=== PATIENT | female | born 1960 | race Caucasian/White ===

== ENCOUNTER → 2017-09-22 14:59 | Outpatient (CLI) | payer OTHER, BC, SELFPAY ==
--- NOTE | 2017-09-22 15:02 | NVE_ITS ---
Venous Exam Indications: 729.5 Pain in limb. 729.81 Swelling of limb. IMPRESSIONS 1. There is no evidence of significant Reflux. 2. No evidence of deep or superficial vein thrombosis involving the right lower extremity History: The patient chemotherapy. Risk factors: Malignancy: LUNG CA. Right lower extremity venous duplex evaluation. Doppler flow study including spectral analysis, color and sifuentes scale imaging. Location: Vascular laboratory. Patient status: Outpatient. CRITICAL FINDINGS - Reported to: [facility] - Read back and verified. - 09/22/17 - 1520 - NONE Tables: Venous flow and imaging: + +-------+ + Location Overall Flow properties + +-------+ + Right common femoral Patent Normal phasicity; spontaneous; normal augmentation; compressible + +-------+ + Right saphenofemoral junction Patent Compressible + +-------+ + Right profunda femoral Patent Compressible + +-------+ + Right femoral Patent Normal phasicity; spontaneous; normal augmentation; compressible + +-------+ + Right greater saphenous Patent Normal phasicity; spontaneous; normal augmentation; compressible + +-------+ + Right popliteal Patent Normal phasicity; spontaneous; normal augmentation; compressible + +-------+ + Right posterior tibial Patent Compressible + +-------+ + Right peroneal Patent Compressible + +-------+ + Right gastrocnemius Patent Compressible + +-------+ + Right soleal Patent Compressible + +-------+ + (Report amended ) Electronically signed by: Raul Richey [id number]
== END ==
PROVIDERS: PCP Family Medicine; Visit Provider Family Medicine
DX: M79.89 Other specified soft tissue disorders (principal)
CPT/HCPCS: 93971

== ENCOUNTER → 2017-10-20 08:43 | Outpatient (CLI) | payer OTHER, BC, SELFPAY ==
--- NOTE | 2017-10-20 08:56 | NM_ITS ---
NM bone scan whole body CLINICAL INDICATION: Remote injury with persistent pain and swelling ITS.REASON: RT FOOT SWELLING ORDERING PHYSICIAN: Marlon Le MD PATIENT AGE: 57 years DOSE: 24.5 mCi technetium MDP COMPARISON made to prior radiograph of same day of the right foot FINDINGS: There is increased blood flow to the right foot and ankle. Blood flow images show increased activity in the midfoot laterally in the region of the cuboid. Delayed images also show increased activity at this region in the mid foot laterally at the area of the cuboid. Repeat right foot x-rays performed on the same day showing some sclerosis involving the distal aspect of the cuboid which could be related to a healing fracture. This was not present on the radiograph of 08/08/2017. Would consider a CT scan of the right foot confirm this finding. IMPRESSION: Abnormal 3 phase bone scan with increased activity in the region of the cuboid on all 3 sequences. The differential diagnosis would include infection such as osteomyelitis or acute fracture. Reflex sympathetic dystrophy/complex regional pain syndrome is also included in the differential diagnosis. Radiograph however suggest that this area of new sclerosis in the distal aspect of the cuboid which could represent a healing fracture. Consider CT for confirmation.
--- NOTE | 2017-10-20 09:49 | HMH.ITSHM ---
VALSARTAN ADAVAN VITAMINS LEVOTHYROXINE BURPROPION AMLODIPINE
--- NOTE | 2017-10-20 13:19 | XR_ITS ---
XR foot RT min 3V HISTORY: Pain and swelling, abnormal bone scan ITS.REASON: INJURY TO TOP OF RT FOOT IN JULY, C/O SWELLING ORDERING PHYSICIAN: Marlon Le MD PATIENT AGE: 57 years COMPARISON: None FINDINGS: There is a new area of sclerosis involving the distal aspect of the cuboid possibly related to a healing fracture. Increased activity is present in this region on the bone scan. Consider CT for confirmation. No other significant anomalies are evident. IMPRESSION: Possible healing fracture distal cuboid. Consider CT for confirmation
== END ==
PROVIDERS: Family Provider Family Medicine; PCP Family Medicine; Visit Provider Family Medicine
DX: M79.89 Other specified soft tissue disorders (principal); M79.672 Pain in left foot
CPT/HCPCS: 73630; 78306; 78315; A9503

== ENCOUNTER 2017-10-30 17:00 | Outpatient (RCR) | payer OTHER, BC, SELFPAY | END 2017-11-03 10:21 | disposition home or self-care (01) | LOC: PT 17:00 | PROVIDERS: Family Provider Family Medicine; PCP Family Medicine; Visit Provider Family Medicine | DX: S92.211D Displaced fracture of cuboid bone of right foot, subsequent encounter for fracture with routine healing (principal) | CPT/HCPCS: 97760 ==

== ENCOUNTER → 2018-01-14 16:30 | Outpatient (CLI) | payer BC, SELFPAY ==
--- NOTE | 2018-01-14 16:38 | XR_ITS ---
XR ribs LT min 3V w CXR1V HISTORY: Left-sided rib pain, left upper quadrant pain ITS.REASON: LEFT UPPER QUADRANT PAIN ORDERING PHYSICIAN: Gretchen Haines PATIENT AGE: 57 years Comparison: None FINDINGS: No displaced rib fractures are evident. No lytic or blastic change. Frontal view of the chest shows postsurgical change in the right hilum. There is some increased density in the right lung base is nonspecific IMPRESSION: Negative left ribs. Postsurgical changes on the right with nonspecific increased density in the right lung base
== END ==
PROVIDERS: PCP Family Medicine; Visit Provider Nurse Practitioner Family
DX: R10.12 Left upper quadrant pain (principal)
CPT/HCPCS: 71101

== ENCOUNTER → 2018-01-19 08:08 | Outpatient (CLI) | payer BC, SELFPAY ==
--- NOTE | 2018-01-19 08:30 | US_ITS ---
US abdomen limited History:Left upper quadrant pain following squeezing injury Ordering Physician:Gretchen Haines Patient Age: 57 years Comparison:None Findings: The spleen contains some calcifications but is otherwise homogeneous echogenicity. No splenomegaly. No abnormal perisplenic fluid collections. The left kidney measures 9 x 4 x 6 cm. There is cortical thinning. No hydronephrosis. IMPRESSION: 1. No acute finding in the left upper quadrant apparent. Consider CT with contrast for more thorough evaluation if symptoms persist 2. Left renal cortical thinning
== END ==
PROVIDERS: PCP Family Medicine; Visit Provider Nurse Practitioner Family
DX: R10.12 Left upper quadrant pain (principal)
CPT/HCPCS: 76705

== ENCOUNTER → 2018-07-17 14:03 | Outpatient (CLI) | payer BC, SELFPAY ==
[2018-07-17 15:53] LABS: Alanine Aminotransferase 19 U/L (12-78); Albumin Level 3.9 gm/dL (3.4-5.0); Albumin/Globulin Ratio 1.3 (1.1-1.8); Alkaline Phosphatase 165 U/L (46-116); Anion Gap 11.6 mEq/L (5-15); Aspartate Amino Transferase 11 U/L (15-37); Bilirubin,Total 0.5 mg/dL (0.2-1.0); Blood Urea Nitrogen 19 mg/dL (7-18); Calcium 9.4 mg/dL (8.5-10.1); Carbon Dioxide 30 mmol/L (21.0-32.0); Chloride 107 mmol/L (98-107); Cholesterol 209 mg/dL (140-200); Creatinine,Serum 1.17 mg/dL (0.55-1.02); Estimated Glomerular Filt Rate 48 ml/min (>60); Free T4 (Free Thyroxine) 0.89 ng/dl (0.76-1.46); GFR (African American) 58 ML/MIN (>60); Globulin 2.9 gm/dl (1.3-3.2); Glucose 82 mg/dL (74-106); HDL Cholesterol 52 mg/dL (29-89); LDL Cholesterol 142 mg/dL (0-130); Potassium 4.6 mmoL/L (3.5-5.1); Sodium 144 mmol/L (136-145); Thyroid Stimulating Hormone 2.49 uIU/ml (0.358-3.740); Total Protein,Serum 6.8 gm/dL (6.4-8.2); Triglycerides 76 mg/dL (30-200); VLDL Cholesterol 15 mg/dL (0-40)
== END ==
PROVIDERS: Visit Provider Physician Assistant
DX: E03.9 Hypothyroidism, unspecified (principal); I10 Essential (primary) hypertension; Z13.220 Encounter for screening for lipoid disorders
CPT/HCPCS: 36415; 80053; 80061; 84439; 84443

== ENCOUNTER → 2018-07-24 16:08 | Outpatient (CLI) | payer BC, SELFPAY ==
[2018-07-24 16:48] LABS: Basophils % 0.6 % (0.1-2.0); Eosinophils # 0.1 K/mm3 (0.0-0.4); Eosinophils % 1.9 % (0.1-12.0); Hematocrit 35.2 % (37.0-47.0); Hemoglobin 11.5 g/dL (12.2-16.2); Lymphocytes # 1.3 K/mm3 (0.7-4.5); Mean Corpuscular HGB Conc 32.7 g/dL (31.8-35.4); Mean Corpuscular Volume 88.7 fl (81-99); Mean Platelet Volume 6.8 fl (7.4-10.4); Monocytes # 0.2 K/mm3 (0.1-1.0); Monocytes % 3.6 % (1.7-9.3); Neutrophils # 4.7 K/mm3 (1.8-7.8); Neutrophils % 73.9 % (37.0-80.0); Platelet Count 316 K/mm3 (142-424); Red Blood Count 3.96 M/mm3 (4.20-5.40); Red Cell Distribution Width 13.1 % (11.5-17.5); White Blood Count 6.4 K/mm3 (4.8-10.8)
[2018-07-24 17:31] LABS: Blood Urea Nitrogen 20 mg/dL (7-18); Calcium 9.1 mg/dL (8.5-10.1); Carbon Dioxide 30 mmol/L (21.0-32.0); Chloride 104 mmol/L (98-107); Creatinine,Serum 0.93 mg/dL (0.55-1.02); Estimated Glomerular Filt Rate 62 ml/min (>60); GFR (African American) 75 ML/MIN (>60); Glucose 92 mg/dL (74-106); Sodium 142 mmol/L (136-145)
[2018-07-26 17:30] LABS: Vitamin B12 641 pg/mL (232-1245)
[2018-07-27 13:28] LABS: Vitamin D 25 Hydroxy 24.2 ng/mL (30.0-100.0)
[2018-07-29 14:32] LABS: Ferritin 22 ng/mL (8-388)
[2018-07-30 06:16] LABS: Iron 43 ug/dL (27-159); UIBC 351 ug/dL (131-425)
[2018-07-30 08:17] LABS: Iron Saturation 11 % (15-55)
== END ==
PROVIDERS: Visit Provider Physician Assistant
DX: R53.83 Other fatigue (principal); N28.9 Disorder of kidney and ureter, unspecified
CPT/HCPCS: 36415; 80048; 82607; 82652; 82728; 83540; 83550; 85025

== ENCOUNTER → 2018-07-30 15:29 | Outpatient (CLI) | payer BC, SELFPAY ==
--- NOTE | 2018-07-30 15:35 | XR_ITS ---
XR DEXA axial skeleton HISTORY: ITS.REASON: POST MENOPAUSAL ORDERING PHYSICIAN: DUDLEY Lopez PATIENT AGE: 58 years COMPARISON: None FINDINGS: The BMD measured at the right femoral neck is 0.728 g/cm squared with a T score of -2.2. This is considered Osteopenic according to the World Health Organization criteria. Fracture risk is Moderate. Treatment is advised. IMPRESSION: Osteopenia with moderate fracture risk. Treatment suggested. Recommend follow-up exam July 2020
--- NOTE | 2018-07-30 15:35 | MM_ITS ---
MM Dig screening mamm BI w/CAD ORDERING PHYSICIAN : DUDLEY Lopez PATIENT AGE: 58 years GENDER: Female COMPARISON: Bilateral mammogram October 2014 & September 2013 Bilateral breast ultrasound November 2014 INDICATION: ITS screening mammogram. No no hormones. No new complaints. Nasopharyngeal cancer 2012. Lung cancer right chest with last chemotherapy treatment September 2017. Also note Postsurgical changes right sarah on prior 2014 CXR.Has had chemotherapy and radiation TECHNIQUE: Standard CC and MLO images were obtained. R2 CAD reviewed. FINDINGS: Very heterogeneous breast pattern is again noted . . Difficult to evaluate mammogram due to this pattern, Decreases sensitivity of mammography RIGHT BREAST: Again note the Very heterogeneous patchy fibroglandular pattern on the right, but there has been slight regression of the overall breast density and glandular elements bilaterally since prior studies 2014, 2012 reflecting maturing character of the breast . Considering this I see no focal new area of significant concern. & These appear to merely be areas of dense fibrocystic tissue on previous 2014 ultrasound without dominant cyst at that time. LEFT BREAST: [We again see the ovoid density at lateral left breast measuring 14 mm diameter. This is been present on numerous previous studies including those dating back to 2012, and even 2011. A cyst is been seen here and confirm on prior studies 2014. Given its stability can be followed. IMPRESSION: 1. Dense very heterogeneous breast- this breast parenchymal pattern significantly decreases sensitivity of mammography 2. Left mammogram . Stable 14 mm round density compatible the long-standing cyst at the lateral left breast seen on studies of these back to 2011. No new areas of significant concern in the left. 3. Right mammogram Again very heterogeneous patchy appearance, but this appears similar to multiple previous studies with no unique new areas of significant concern. 4. Bilateral mammogram in one year would be recommended and should be emphasized/encouraged. Suggest bilateral breast ultrasound on that follow-up screening study as well. If any palpable areas arise in the interval ultrasound be useful compliment to mammography in breast of this dense heterogeneous character BI-RADS Category: 2 Benign Finding(s) RECOMMENDED FOLLOW-UP: 1YR 1 YEAR FOLLOW-UP (A letter has been sent to the patient regarding results of the study.) .
== END ==
PROVIDERS: PCP Family Medicine; Visit Provider Physician Assistant
DX: Z12.31 Encounter for screening mammogram for malignant neoplasm of breast (principal); Z78.0 Asymptomatic menopausal state
CPT/HCPCS: 77067; 77080

== ENCOUNTER → 2019-03-26 12:21 | Outpatient (CLI) | payer BC, SELFPAY ==
--- NOTE | 2019-03-26 12:28 | XR_ITS ---
PROCEDURE: XR CHEST 2V CLINICAL HISTORY: BRONCHITIS COMPARISON: [id number] XR ribs LT min 3V w CXR1V from 01/14/2018 FINDINGS: The cardiomediastinal silhouette and pulmonary vascularity are within normal limits. There is some patchy density noted in the right lung base which may be due to an area of infiltrate. There is an old fracture of the right 7th rib. No acute bony abnormalities. IMPRESSION: Patchy infiltrate in the right lower lobe Dictated by: Raul Richey MD 03/26/2019 17:21 Electronically signed by Raul Richey MD in [place] 03/26/2019 17:21
== END ==
PROVIDERS: PCP Family Medicine; Visit Provider Physician Assistant
DX: J40 Bronchitis, not specified as acute or chronic (principal)
CPT/HCPCS: 71046

== ENCOUNTER → 2019-04-07 14:28 | Outpatient (CLI) | payer BC, SELFPAY ==
--- NOTE | 2019-04-07 14:31 | XR_ITS ---
PROCEDURE: XR CHEST 2V CLINICAL HISTORY: PNEUMONIA Pneumonia, cough, history of lung cancer COMPARISON: [id number] XR ribs LT min 3V w CXR1V from 01/14/2018 XR CHEST 2V from 03/26/2019 FINDINGS: The cardiomediastinal silhouette and pulmonary vascularity are within normal limits. There are postsurgical changes in the right hilum. No lobar consolidation or collapse. Status post resection of the right 7th rib posteriorly No acute bony abnormalities. IMPRESSION: No change with no acute finding Dictated by: Raul Richey MD 04/07/2019 15:20 Electronically signed by Raul Richey MD in [place] 04/07/2019 15:20
== END ==
PROVIDERS: PCP Physician Assistant; Visit Provider Physician Assistant
DX: J18.9 Pneumonia, unspecified organism (principal)
CPT/HCPCS: 71046

== ENCOUNTER → 2019-12-22 13:26 | Outpatient (CLI) | payer BC, SELFPAY ==
--- NOTE | 2019-12-22 13:29 | MM_ITS ---
PROCEDURE: MM DIG SCREENING MAMM BI W/CAD Digital Breast Tomosynthesis Included CLINICAL INDICATION: SCREENING There is no personal or family history of breast cancer. The patient was diagnosed with nasopharyngeal cancer 2012 lung cancer 2018 COMPARISON: MG DMSB DIG MAMM-SCREEN JESSA from 09/09/2013 MG DMSB DIG MAMM-SCREEN JESSA from 10/14/2014 MG SCBI MM Dig screening mamm BI w/CAD from 07/30/2018 TECHNIQUE: Standard CC and MLO images and 3D Tomosynthesis was obtained. R2 CAD reviewed. FINDINGS: Moderate heterogenic fibroglandular densities are seen in both breasts. There has been some mild progressive fatty involution of the breast parenchyma when compared to previous studies from 10/14/2014 and 09/09/2013. There is no suspicious lesion and no suspicious microcalcifications. There are couple of benign-appearing microcalcifications right breast. There is a stable benign-appearing spherical lesion lower outer quadrant left breast shown to be cystic on previous ultrasound studies and stable compared to several recent mammograms. IMPRESSION: Moderate heterogenic breast density with no suspicious lesions seen BI-RAD Category: 2 Benign Finding(s) FOLLOW-UP: 1YR 1 Year Follow-up (A letter has been sent to the patient regarding results of the study.) Dictated Dr. Gabriel Castellanos MD 12/24/2019 08:56 Dr. Gabriel Wilson MD in [place] 12/24/2019 08:56
== END ==
PROVIDERS: PCP Physician Assistant; Visit Provider Physician Assistant
DX: Z12.31 Encounter for screening mammogram for malignant neoplasm of breast (principal)
CPT/HCPCS: 77063; 77067

== ENCOUNTER → 2020-02-14 15:45 | Outpatient (CLI) | payer BC, SELFPAY ==
--- NOTE | 2020-02-14 15:50 | XR_ITS ---
PROCEDURE: XR CHEST 2V CLINICAL HISTORY: COUGH COMPARISON: CR [id number] XR ribs LT min 3V w CXR1V from 01/14/2018 DX XR CHEST 2V from 03/26/2019 CR XR CHEST 2V from 04/07/2019 FINDINGS: The cardiomediastinal silhouette and pulmonary vascularity are within normal limits. The lungs are clear without infiltrates, suspicious nodules, or pleural effusions. Posterior aspect of the right 7th rib is missing presumed due to prior surgery. This is not significantly changed. There is a faint nodule noted in the right lung base at 6 mm. There is some scarring present in the right middle lobe with postsurgical change. No acute bony findings. IMPRESSION: Postsurgical changes. There is a 6 mm nodular opacity in the right lung base not previously identified possibly even due to artifact.. Follow-up may confirm stability. Dictated by: Raul Richey MD 02/14/2020 16:21 Raul Richey MD in [place] 02/14/2020 16:21
[2020-02-14 16:51] LABS: Basophils # 0.1 K/mm3 (0-0.2); Basophils % 1.1 % (0.1-2.0); Eosinophils # 0.2 K/mm3 (0.0-0.4); Eosinophils % 3.8 % (0.1-12.0); Hematocrit 37.8 % (37.0-47.0); Hemoglobin 12.6 g/dL (12.2-16.2); Lymphocytes # 1.4 K/mm3 (0.7-4.5); Lymphocytes % 27.5 % (10-50); Mean Corpuscular HGB Conc 33.4 g/dL (31.8-35.4); Mean Corpuscular Hemoglobin 30.8 pg (27.0-31.2); Mean Corpuscular Volume 92.3 fl (81-99); Mean Platelet Volume 7.2 fl (7.4-10.4); Monocytes # 0.3 K/mm3 (0.1-1.0); Monocytes % 5.2 % (1.7-9.3); Neutrophils # 3.1 K/mm3 (1.8-7.8); Neutrophils % 62.4 % (37.0-80.0); Platelet Count 314 K/mm3 (142-424); Red Blood Count 4.09 M/mm3 (4.20-5.40); Red Cell Distribution Width 13.3 % (11.5-17.5); White Blood Count 4.9 K/mm3 (4.8-10.8)
== END ==
PROVIDERS: PCP Family Medicine; Visit Provider Nurse Practitioner Family
DX: R05 Cough (principal)
CPT/HCPCS: 36415; 71046; 85025

== ENCOUNTER → 2020-02-21 18:01 | Outpatient (CLI) | payer BC, SELFPAY | PROVIDERS: PCP Family Medicine; Visit Provider Nurse Practitioner Family | DX: Z03.818 Encounter for observation for suspected exposure to other biological agents ruled out (principal) | CPT/HCPCS: U0003 ==

== ENCOUNTER → 2020-03-14 09:12 | Outpatient (CLI) | payer BC, MEDICAID, SELFPAY ==
[2020-03-14 10:03] LABS: Chloride 106 mmol/L (98-107); Sodium 143 mmol/L (136-145)
[2020-03-14 10:04] LABS: Potassium 4.5 mmoL/L (3.5-5.1)
[2020-03-14 10:06] LABS: Blood Urea Nitrogen 12 mg/dl (7-17); Estimated Glomerular Filt Rate 57 ml/min (>60); GFR (African American) 69 ML/MIN (>60)
[2020-03-14 10:07] LABS: Anion Gap 10.5 mEq/L (5-15); Calcium 10.1 mg/dl (8.4-10.2); Carbon Dioxide 31 mmol/L (22.0-30.0); Chol/HDL Ratio 3.2 (1-3.5); Cholesterol 141 mg/dl (140-200); Glucose 93 mg/dl (74-100); HDL Cholesterol 44 mg/dl (40-60); Triglycerides 137 mg/dl (30-150); VLDL Cholesterol 27 mg/dL (0-40)
[2020-03-14 10:18] LABS: Direct LDL Cholesterol 57.51 mg/dL (100-129)
[2020-03-14 10:38] LABS: Thyroid Stimulating Hormone 0.17 uIU/mL (0.465-4.68)
== END ==
PROVIDERS: Visit Provider Nurse Practitioner Family
DX: I10 Essential (primary) hypertension (principal); E03.9 Hypothyroidism, unspecified; Z13.220 Encounter for screening for lipoid disorders
CPT/HCPCS: 36415; 80048; 80061; 84443

== ENCOUNTER → 2020-08-14 15:06 | Outpatient (CLI) | payer BC, SELFPAY ==
[2020-08-14 17:10] LABS: Chloride 102 mmol/L (98-107); Potassium 3.7 mmoL/L (3.5-5.1); Sodium 142 mmol/L (136-145)
[2020-08-14 17:12] LABS: Blood Urea Nitrogen 14 mg/dl (7-17); Estimated Glomerular Filt Rate 57 ml/min (>60); GFR (African American) 69 ML/MIN (>60)
[2020-08-14 17:13] LABS: Anion Gap 11.7 mEq/L (5-15); Calcium 10.5 mg/dl (8.4-10.2); Carbon Dioxide 32 mmol/L (22.0-30.0); Chol/HDL Ratio 2.4 (1-3.5); Cholesterol 146 mg/dl (140-200); Glucose 87 mg/dl (74-100); HDL Cholesterol 60 mg/dl (40-60); Triglycerides 109 mg/dl (30-150); VLDL Cholesterol 22 mg/dL (0-40)
[2020-08-14 17:25] LABS: Direct LDL Cholesterol 61.35 mg/dL (100-129)
[2020-08-14 17:44] LABS: Thyroid Stimulating Hormone 9.02 uIU/mL (0.465-4.68)
== END ==
PROVIDERS: Visit Provider Physician Assistant
DX: I10 Essential (primary) hypertension (principal); E03.9 Hypothyroidism, unspecified; E87.6 Hypokalemia
CPT/HCPCS: 36415; 80048; 80061; 84443

== ENCOUNTER → 2020-12-11 15:50 | Outpatient (CLI) | payer BC, SELFPAY ==
[2020-12-11 18:11] LABS: Free T4 (Free Thyroxine) 1.78 ng/dl (0.78-2.19)
[2020-12-11 18:52] LABS: Thyroid Stimulating Hormone 0.14 uIU/mL (0.465-4.68)
== END ==
PROVIDERS: Visit Provider Physician Assistant
DX: E03.9 Hypothyroidism, unspecified (principal)
CPT/HCPCS: 36415; 84439; 84443

== ENCOUNTER → 2021-03-07 10:24 | Outpatient (CLI) | payer BC, SELFPAY ==
[2021-03-07 11:20] LABS: Basophils % 0.5 % (0.1-2.0); Eosinophils # 0.2 K/mm3 (0.0-0.4); Hematocrit 45.6 % (37.0-47.0); Hemoglobin 13.8 g/dL (12.2-16.2); Lymphocytes # 1.5 K/mm3 (0.7-4.5); Lymphocytes % 20.9 % (10-50); Mean Corpuscular HGB Conc 30.2 g/dL (31.8-35.4); Mean Corpuscular Hemoglobin 27.9 pg (27.0-31.2); Mean Corpuscular Volume 92.4 fl (81-99); Mean Platelet Volume 6.7 fl (7.4-10.4); Monocytes # 0.4 K/mm3 (0.1-1.0); Neutrophils # 4.9 K/mm3 (1.8-7.8); Neutrophils % 70.6 % (37.0-80.0); Platelet Count 380 K/mm3 (142-424); Red Blood Count 4.93 M/mm3 (4.20-5.40); Red Cell Distribution Width 12.5 % (11.5-17.5); White Blood Count 6.9 K/mm3 (4.8-10.8)
== END ==
PROVIDERS: PCP Physician Assistant; Visit Provider Nurse Practitioner
DX: Z20.822 Contact with and (suspected) exposure to COVID-19 (principal)
CPT/HCPCS: 36415; 85025; C9803; U0003; U0005

== ENCOUNTER → 2021-04-11 11:48 | Outpatient (CLI) | payer BC, SELFPAY ==
[2021-04-11 12:30] LABS: Basophils % 0.3 % (0.1-2.0); Eosinophils # 0.2 K/mm3 (0.0-0.4); Eosinophils % 1.8 % (0.1-12.0); Hematocrit 41.4 % (37.0-47.0); Hemoglobin 14.1 g/dL (12.2-16.2); Lymphocytes # 1.6 K/mm3 (0.7-4.5); Mean Corpuscular HGB Conc 34.2 g/dL (31.8-35.4); Mean Corpuscular Hemoglobin 29.6 pg (27.0-31.2); Mean Corpuscular Volume 86.5 fl (81-99); Mean Platelet Volume 7.2 fl (7.4-10.4); Monocytes # 0.5 K/mm3 (0.1-1.0); Monocytes % 4.2 % (1.7-9.3); Neutrophils # 8.4 K/mm3 (1.8-7.8); Neutrophils % 78.6 % (37.0-80.0); Platelet Count 396 K/mm3 (142-424); Red Blood Count 4.78 M/mm3 (4.20-5.40); Red Cell Distribution Width 13.5 % (11.5-17.5); White Blood Count 10.7 K/mm3 (4.8-10.8)
[2021-04-11 14:10] LABS: Free T4 (Free Thyroxine) 1.39 ng/dl (0.78-2.19)
[2021-04-11 14:23] LABS: Thyroid Stimulating Hormone 4.29 uIU/mL (0.465-4.68)
== END ==
PROVIDERS: PCP Family Medicine; Visit Provider Physician Assistant
DX: Z20.822 Contact with and (suspected) exposure to COVID-19 (principal); Z79.899 Other long term (current) drug therapy
CPT/HCPCS: 36415; 84439; 84443; 85025; C9803; U0003; U0005

== ENCOUNTER → 2021-04-25 14:09 | Outpatient (CLI) | payer BC, SELFPAY ==
--- NOTE | 2021-04-25 14:20 | XR_ITS ---
PROCEDURE: XR ABDOMEN MIN 2V CLINICAL INDICATION: COMPARISON: No exams were available for comparison FINDINGS: Bowel gas pattern is nonspecific. No evidence of intestinal obstruction or free air. Mild lumbar scoliosis convex right. Multiple calcified splenic granulomas. There is calcification along the right L4 transverse process possibly related to phleboliths. This calcification measures 4 mm. Phleboliths noted in the left pelvic region IMPRESSION: No acute finding. Dictated by: Raul Richey MD 04/25/2021 16:01 Raul Richey MD in [place] 04/25/2021 16:01
[2021-04-25 14:53] LABS: Basophils % 0.7 % (0.1-2.0); Eosinophils # 0.2 K/mm3 (0.0-0.4); Eosinophils % 3.2 % (0.1-12.0); Hemoglobin 14.6 g/dL (12.2-16.2); Lymphocytes # 1.5 K/mm3 (0.7-4.5); Lymphocytes % 27.2 % (10-50); Mean Corpuscular HGB Conc 34.7 g/dL (31.8-35.4); Mean Corpuscular Hemoglobin 29.7 pg (27.0-31.2); Mean Corpuscular Volume 85.5 fl (81-99); Mean Platelet Volume 7.8 fl (7.4-10.4); Monocytes # 0.3 K/mm3 (0.1-1.0); Monocytes % 4.8 % (1.7-9.3); Neutrophils # 3.6 K/mm3 (1.8-7.8); Neutrophils % 64.2 % (37.0-80.0); Platelet Count 470 K/mm3 (142-424); Red Blood Count 4.91 M/mm3 (4.20-5.40); Red Cell Distribution Width 13.2 % (11.5-17.5); White Blood Count 5.6 K/mm3 (4.8-10.8)
[2021-04-25 15:48] LABS: Chloride 105 mmol/L (98-107)
[2021-04-25 15:49] LABS: Sodium 145 mmol/L (136-145)
[2021-04-25 15:51] LABS: Alanine Aminotransferase 16 U/L (12-78); Alkaline Phosphatase 156 U/L (38-126); Aspartate Amino Transferase 24 U/L (14-36); Bilirubin,Total 0.4 mg/dl (0.2-1.3); Blood Urea Nitrogen 15 mg/dl (7-17); Estimated Glomerular Filt Rate 74 ml/min (>60); GFR (African American) 89 ML/MIN (>60)
[2021-04-25 15:52] LABS: Albumin Level 4.6 g/dl (3.5-5.0); Albumin/Globulin Ratio 1.8 (1.1-1.8); Calcium 9.9 mg/dl (8.4-10.2); Carbon Dioxide 29 mmol/L (22.0-30.0); Globulin 2.5 g/dL (1.3-3.2); Glucose 88 mg/dl (74-100); Total Protein,Serum 7.1 g/dl (6.3-8.2)
== END ==
PROVIDERS: Visit Provider Physician Assistant
DX: R11.2 Nausea with vomiting, unspecified (principal)
CPT/HCPCS: 36415; 74019; 80053; 85025

== ENCOUNTER → 2021-09-05 15:19 | Outpatient (CLI) | payer BC, SELFPAY ==
--- NOTE | 2021-09-05 15:22 | MM_ITS ---
PROCEDURE INFORMATION: Exam: MG Bilateral Screening 3D Mammography Exam date and time: 09/05/2021 3:15 PM Age: 61 years old Clinical indication: Screening examination TECHNIQUE: Imaging protocol: Bilateral Screening tomosynthesis and 2D mammography including computer-aided detection (CAD) when performed. COMPARISON: 1. MG MM DIG SCREENING MAMM BI W/CAD 12/22/2019 1:29 PM 2. MG SCBI MM Dig screening mamm BI w/CAD 07/30/2018 3:53 PM 3. MG DMSB DIG MAMM-SCREEN JESSA 10/14/2014 4:04 PM 4. MG DMSB DIG MAMM-SCREEN JESSA 09/09/2013 2:55 PM FINDINGS: MAMMOGRAPHY: Breast composition: The breast is heterogeneously dense, which may obscure small masses. Mass: Stable benign-appearing nodules are present in the bilateral breast. No new or morphologically suspicious nodule has developed to suggest malignancy. Architectural distortion: No new or suspicious architectural distortion. Calcifications: No new or suspicious calcifications are present Asymmetric density: No new or suspicious asymmetric density is present Skin thickening: None. Axillary adenopathy: None. IMPRESSION: No mammographic evidence of malignancy. Recommend annual screening mammography unless otherwise clinically indicated. ASSESSMENT: BI-RADS category 2: Benign
== END ==
PROVIDERS: PCP Family Medicine; Visit Provider Family Medicine
DX: Z12.31 Encounter for screening mammogram for malignant neoplasm of breast (principal)
CPT/HCPCS: 77063; 77067

== ENCOUNTER → 2022-04-11 11:43 | Outpatient (CLI) | payer BC, SELFPAY ==
[2022-04-11 13:00] LABS: Coronavirus 19, PCR Not Detected (NotDetected); Influenza A, PCR Not Detected (NotDetected); Influenza B, PCR Not Detected (NotDetected)
[2022-04-11 13:11] LABS: Basophils # 0.1 K/mm3 (0-0.2); Basophils % 1.2 % (0.1-2.0); Eosinophils # 0.3 K/mm3 (0.0-0.4); Eosinophils % 4.8 % (0.1-12.0); Hematocrit 40.2 % (37.0-47.0); Hemoglobin 12.5 g/dL (12.2-16.2); Lymphocytes # 1.3 K/mm3 (0.7-4.5); Lymphocytes % 23.7 % (10-50); Mean Corpuscular Hemoglobin 29.5 pg (27.0-31.2); Mean Corpuscular Volume 95.2 fl (81-99); Monocytes # 0.3 K/mm3 (0.1-1.0); Monocytes % 5.8 % (1.7-9.3); Neutrophils # 3.4 K/mm3 (1.8-7.8); Neutrophils % 64.5 % (37.0-80.0); Platelet Count 353 K/mm3 (142-424); Red Blood Count 4.23 M/mm3 (4.20-5.40); Red Cell Distribution Width 13.4 % (11.5-17.5); White Blood Count 5.3 K/mm3 (4.8-10.8)
[2022-04-11 13:23] LABS: Strep Scrn Group A (Rapid) Negative (Negative)
== END ==
PROVIDERS: PCP Family Medicine; Visit Provider Physician Assistant
DX: Z20.822 Contact with and (suspected) exposure to COVID-19 (principal)
CPT/HCPCS: 36415; 85025; 87430; C9803; U0003; U0005

== ENCOUNTER → 2022-08-14 12:20 | Outpatient (CLI) | payer BC, SELFPAY ==
[2022-08-14 12:41] LABS: Coronavirus 19, PCR Not Detected (NotDetected); Influenza A, PCR Not Detected (NotDetected); Influenza B, PCR Not Detected (NotDetected)
[2022-08-14 13:03] LABS: Basophils # 0.1 K/mm3 (0-0.2); Basophils % 0.7 % (0.1-2.0); Eosinophils # 0.4 K/mm3 (0.0-0.4); Hematocrit 40.9 % (37.0-47.0); Hemoglobin 12.7 g/dL (12.2-16.2); Lymphocytes # 1.9 K/mm3 (0.7-4.5); Lymphocytes % 25.5 % (10-50); Mean Corpuscular HGB Conc 31.1 g/dL (31.8-35.4); Mean Corpuscular Hemoglobin 28.7 pg (27.0-31.2); Mean Corpuscular Volume 92.5 fl (81-99); Mean Platelet Volume 7.5 fl (7.4-10.4); Monocytes # 0.4 K/mm3 (0.1-1.0); Monocytes % 5.1 % (1.7-9.3); Neutrophils # 4.7 K/mm3 (1.8-7.8); Neutrophils % 63.7 % (37.0-80.0); Platelet Count 372 K/mm3 (142-424); Red Blood Count 4.42 M/mm3 (4.20-5.40); Red Cell Distribution Width 12.9 % (11.5-17.5); White Blood Count 7.4 K/mm3 (4.8-10.8)
[2022-08-14 13:12] LABS: Strep Scrn Group A (Rapid) Negative (Negative)
== END ==
PROVIDERS: PCP Physician Assistant; Visit Provider Physician Assistant
DX: Z20.822 Contact with and (suspected) exposure to COVID-19 (principal)
CPT/HCPCS: 36415; 85025; 87430; C9803; U0003; U0005

== ENCOUNTER 2023-11-04 12:52 | Outpatient (CLI) | payer BC, SELFPAY ==
--- NOTE | 2023-11-04 13:01 | US_ITS ---
FINAL REPORT CLINICAL HISTORY: ABN KIDNEY FUNCTION TEST COMPARISON: None FINDINGS: RENAL ULTRASOUND Ultrasound images of the kidneys were obtained. Limited images of the liver parenchyma demonstrates normal echogenicity. The right kidney measures 9.0 cm in length. It is normal echogenicity. There is no hydronephrosis. The left kidney measures 10.1 cm in length. It is normal echogenicity. There is no hydronephrosis. IMPRESSION: Normal renal ultrasound. Reviewed, Interpreted and Dictated by Marlon Bolaños MD Transcribed by Diana Schultz Authenticated and [facility]
== END 2023-11-04 23:59 | disposition home or self-care (01) ==
LOC: RAD 12:53
PROVIDERS: PCP Family Medicine; Visit Provider Family Medicine
DX: N28.9 Disorder of kidney and ureter, unspecified (principal)
CPT/HCPCS: 76770

== ENCOUNTER 2024-03-10 14:47 | Outpatient (CLI) | payer BC, SELFPAY ==
--- NOTE | 2024-03-10 14:51 | XR_ITS ---
FINAL REPORT CLINICAL HISTORY: screening FINDINGS: Using L1-4, the bone mineral density of the spine is 1.004 g/cm2, corresponding to T-score of -0.4. Using the left hip, the bone mineral density of the femoral neck is 0.648 g/cm2, corresponding to a T-score of -1.8. Using the right hip, the bone mineral density of the femoral neck is 0.677 g/cm2, corresponding to a T-score of -1.5. FRAX 10 year fracture risk is 27% for a hip fracture and 4.5% for a major osteoporotic fracture. IMPRESSION: Normal bone mineral density of the lumbar spine. Osteopenic bone mineral density of the bilateral hips. NOTE: T-score: Standard deviation compared with peak bone mass of young adult mean. *Following the recommendations of the International Society of Bone densitometry, classification of hip BMD is based on the lower of two T-scores; total hip or femoral neck. Reviewed, Interpreted and Dictated by Nils Gray MD Transcribed by Antonieta Coreas Authenticated and [facility]
--- NOTE | 2024-03-10 15:02 | MM_ITS ---
PROCEDURE INFORMATION: Exam: MG Bilateral Screening 3D Mammography Exam date and time: 03/10/2024 2:55 PM Age: 63 years old Clinical indication: Screening examination TECHNIQUE: Imaging protocol: Bilateral Screening tomosynthesis and 2D mammography including computer-aided detection (CAD) when performed. COMPARISON: 1. MG MM DIG SCREENING MAMM BI W/CAD 09/05/2021 3:15 PM 2. MG MM DIG SCREENING MAMM BI W/CAD 12/22/2019 1:29 PM FINDINGS: MAMMOGRAPHY: Breast composition: The breasts are heterogeneously dense, which may obscure small masses. Mass: No suspicious masses. Architectural distortion: None. Calcifications: No suspicious calcifications. Asymmetric density: None. Skin thickening: None. Axillary adenopathy: None. IMPRESSION: No mammographic evidence of malignancy. Annual screening is recommended unless otherwise clinically indicated. ASSESSMENT: BI-RADS Category 1: Negative.
== END 2024-03-10 23:59 | disposition home or self-care (01) ==
LOC: RAD 14:47
PROVIDERS: PCP Nurse Practitioner Family; Visit Provider Nurse Practitioner Family
DX: Z12.31 Encounter for screening mammogram for malignant neoplasm of breast (principal); M81.0 Age-related osteoporosis without current pathological fracture
CPT/HCPCS: 77063; 77067; 77080

== ENCOUNTER 2024-12-16 12:48 | Outpatient (CLI) | payer BC, SELFPAY ==
--- OUTSIDE RECORDS SUMMARY | 2024-11-18 10:15 | XMS_ITS ---
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 Role Phone Mary Le Primary Care Provider Sophia Kent Unavailable [phone] Allergies Allergen (clinical drug ingredient) Drug/Non Drug Allergy documented on EMR Reaction Allergy Type Onset Date Status codeine Codeine Unknown Drug Allergy Active Results Component Value Reference Range Notes Rapid Strep- Inhouse Reviewed date:11/19/2024 08:51:46 AM Interpretation:neg Performing Lab: Notes/Report: neg strep test neg CBC Fingerstick (in house) Reviewed date:11/19/2024 08:51:54 AM Interpretation: Performing Lab: Notes/Report: wbc 6.0 3.5 - 10 lym 22.9 15 - 50 mid 5.6 2 - 15 gran 71.5 35 - 80 rbc 3.83 3.5 - 5.5 hgb 11.9 11.5 - 16.5 hct 35.8 35 - 55 mcv 93.5 75 - 100 mch 31.2 25 - 35 mchc 33.4 31 - 38 plat 252 100 - 400 REASON FOR VISIT swelling Medications Medication SIG (Take, Route, Frequency, Duration) Notes Start Date End Date Status Levalbuterol Tartrate 45 MCG/ACT 2 puff as needed Inhalation qid prn 10/29/2023 Active amLODIPine Besylate-Valsartan 5-160 MG 1 tab(s) orally once a day; Duration: 90 days Active Omeprazole 40 MG 1 capsule 30 minutes before morning meal Orally Once a day Active Mupirocin 2 % 1 leobardo applied topica lly in the nose daily 12/20/2021 Active busPIRone HCl 15 MG 1 tablet Orally Twic e a day Active Triamcinolone Acetonide 0.1 % 1 application Externally three times a day, prn 10/28/2024 Active Levothyroxine Sodium 150 MCG 1 tablet in the morning on an empty stomach Orally Once a day; Duration: 30 days 10/28/2024 Active Albuterol Sulfate HFA 108 (90 Base) MCG/ACT 1-2 PUFFS Inhalation 4 times a day Active Atorvastatin Calcium 10 MG 1 tablet Oral ly Once a day; Duration: 90 days Active Linezolid 600 MG 1 tablet Orally ever y 12 hrs; Duration: 10 days 11/10/2024 Active Potassium Chloride ER 10 MEQ 1 tablet with food Orally Twice a day; Duration: 90 days Active Triamterene-HCTZ 37.5-25 MG TAKE 1 TABLE T BY MOUTH EVERY DAY; Duration: 90 Active buPROPion HCl ER (XL) 300 MG TAKE 1 TABLET BY MOUTH DAILY; Duration: 90 Active Vital Signs Blood pressure systolic 120 mm Hg 11/19/19 25 Blood pressure diastolic 80 mm Hg 025 Heart Rate 81 /min 11/18/2024 Height 60 in 11/18/2024 Weight 113.8 lbs 11/18/2024 BMI 22.22 kg/m2 11/18/2024 Encounters Encounter Location Date Provider Diagnosis [facility] [facility] [address] [id number] 11/18/2024 Sophia Kent Acute URI J06.9 ; Le g swelling M79.89 and BMI 22.0-22.9, adult Z68.22 Assessments Encounter Date Diagnosis (ICD Code) Assessment Notes Treatment Notes Treatment Clinical Notes Section Notes 11/18/2024 Acute URI (ICD-10 - J06.9) fluids, rest, supportive measures for fever/symptom relief, has OTC cough medication at home 11/18/2024 Leg swelling (ICD-10 - M79.89) Resolved. 11/18/2024 BMI 22.0-22.9, adult (ICD-10 - Z68.22) Plan Of Treatment Treatment Notes Assessment Notes Acute URI fluids, rest, suppor tive measures for fever/symptom relief, has OTC cough medication at home Leg swelling Resolved. Next Appt Details Follow Up: prn, Reason: Provider Name:Sophia currie, 12/17/2024 03:15:00 PM, [address], [address], [place], [phone], Provider Name:Mary Wright er, 01/13/2025 01:45:00 PM, [address], [address], [place], [phone], Progress Notes * Sivan MONTIELaDOB:1960 (64 yo F)Acc No.[id number]:11/18/2024 Progress Notes Patient: Comfort ALMEIDA Provider: DUDLEY Valdez :1960 A ge:64 Y S ex:Female Date:11/18/2024 Address:[address] [place], [place] [id number] Pcp:Mary Le Subjective: * Chief Complaints: * 1 . Swelling. * HPI: D ermatology: 64 year old female presents with c/o Swelling P t states that both legs were swollen but this resolved on Thursday 11/16. E NT/respiratory: c/o sore throat P t states that Wednesday 11/15 t, feels scratchy, swallowing painful, concurrent with cough. * ROS: C ARDIOLOGY: no D izziness. n o C hest pain. G ASTROENTEROLOGY: no N ausea. n o V omiting. n o D iarrhea.? U ROLOGY: no D ifficulty urinating. n o B lood in urine. * Medical History: H ypertension, Hypothyroidism, Depression, Anxiety, Lung Cancer Stage I - chemo treatments - Dr. Saloni Mckeon [facility] dx. May 01, 2017, Saw Dr. Jenkins in November 2022. * Surgical History: G allstones 1970, Arm Surgery 1979, Hysterectomy 2006, lymph node biopsy left neck, metastatic squamous cell CA 03/2012, panendoscopy 03/2012, left neck dissection, nodes negative 04/08/2012, Nasal 02/03/2014, Partial Mid RT Lung - cancer - Chemo Treatments , Port Placement 06/30/2017. * Hospitalization/Major Diagno stic Procedure: p neumonia 1993, [facility] - Lung Cancer Removal 06/02-. * Family History: F ather: alive. M other: alive 86 yrs. 1 sister(s) - healthy. 2 son(s) - healthy. .? * Social History: C URRENT TOBACCO USE: Yes S moking Status: Patient does smoke, packs per day: 1. C affeine: yes. Exercise: no. Marital Status: , . Past smoking status: yes, Smoking status: Patient does smoke, Packs per day: 1, Number Cigarettes per day: 20, Since age of: 15, Smoking preference: cigarettes. Alcohol: Yes, Type: , Frequency: ,Years: , Determination:. * Medications: T aking Levothyroxine Sodium 150 MCG Tablet 1 tablet in the morning on an empty stomach Orally Once a day , Taking Triamcinolone Acetonide 0.1 % Cream 1 application Externally three times a day, prn , Taking busPIRone HCl 15 MG Tablet 1 tablet Orally Twice a day , Taking Mupirocin 2 % Ointment 1 leobardo applied topically in the nose daily , Taking Omeprazole 40 MG Capsule Delayed Release 1 capsule 30 minutes before morning meal Orally Once a day , Taking amLODIPine Besylate-Valsartan 5-160 MG Tablet 1 tab(s) orally once a day , Taking Levalbuterol Tartrate 45 MCG/ACT Aerosol 2 puff as needed Inhalation qid prn , Taking buPROPion HCl ER (XL) 300 MG Tablet Extended Release 24 Hour TAKE 1 TABLET BY MOUTH DAILY , Taking Triamterene-HCTZ 37.5-25 MG Tablet TAKE 1 TABLET BY MOUTH EVERY DAY , Taking Potassium Chloride ER 10 MEQ Capsule Extended Release 1 tablet with food Orally Twice a day , Taking Atorvastatin Calcium 10 MG Tablet 1 tablet Orally Once a day , Taking Albuterol Sulfate HFA 108 (90 Base) MCG/ACT Aerosol Solution 1-2 PUFFS Inhalation 4 times a day , Taking Linezolid 600 MG Tablet 1 tablet Orally every 12 hrs , Medication List reviewed and reconciled with the patient * Allergies: C odeine. Objective: * Vitals: W t: 113.8, Temp: 000, BP: 120/80, HR: 81, Nurse: pe, Ht: 60, BMI:22.22. * Examination: E NT/Respiratory: General Appearance: N AD. E ars: a uditory canals normal bilaterally, TM's WNL. N ose : t urbinates red, congested. S inuses : t gisel maxillary sinuses bilaterally. O ral cavity : e rythema without exudate on pharynx, PND present. N jennifer : s upple, mildly tender anterior adenopathy. H eart : R RR, normal S1 S2, no murmurs. L ungs: c lear to auscultation bilaterally. E xtremities : n o edema.? Assessment: * Assessment: 1. A cute URI - J06.9 (Primary) 2 . L eg swelling - M79.89 3 . B LA 22.0-22.9, adult - Z68.22 Plan: * Treatment: Value Reference Range s trep test neg * Charlette Boykin 11/18/2024 04:0 4:28 PM EDT > Provider reviewed results while patient in office.Sophia Kent 11/19/2024 08:51:42 AM EDT > ?LAB: CBC Fingerstick (in house) (Collection Date & Time - 11/18/2024)* Value Reference Range w bc 6.0 3.5 - 10 * l ym 22.9 15 - 50 * m id 5.6 2 - 15 * g ran 71.5 35 - 80 * r bc 3.83 3.5 - 5.5 * h gb 11.9 11.5 - 16.5 * h ct 35.8 35 - 55 * m cv 93.5 75 - 100 * m ch 31.2 25 - 35 * m chc 33.4 31 - 38 * p lat 252 100 - 400 * Liat Marie 11/18/2024 0 2:54:21 PM EDT > Provider reviewed results while patient in office.Sophia Kent 11/19/2024 08:51:51 AM EDT > Notes: fluids, rest, supportive measures for fever/symptom relief, has OTC cough medication at home ?2.?Leg swelling? Notes: Resolved.?? * Procedure Codes: 3 6416 CAPILLARY BLOOD DRAW, 80828 CBC WITH AUTO DIFF, 98452 STREP A ASSAY W/OPTIC, Modifiers: QW , G8420 BMI<30 AND >=22 CALC & DOCU, G8783 BP SCR PRFRM RCMDD DEFIND SCR INTVL, 3074F SYST BP LT 130 MM HG, 3079F DIAST BP 80-89 MM HG * Follow Up: p rn * Images: Billing Information: * Visit Code: 05923 Office Visit, Est Pt., Level 3. * Procedure Codes: 41266 CAPILLARY BLOOD DRAW. 30898 CBC WITH AUTO DIFF. 96558 STREP A ASSAY W/OPTIC. Modifiers: QW G8420 BMI<30 AND >=22 CALC & DOCU. G8783 BP SCR PRFRM RCMDD DEFIND SCR INTVL. 3074F SYST BP LT 130 MM HG. 3079F DIAST BP 80-89 MM HG. * Electronic signature of DUDLEY Aquino on 12/16/2024 at 12:50 PM EDT Sign off status: Pending * Provider: DUDLEY Valdez Date: 0 11/18/2024 Generated for Printi ng/Faxing/eTransmitting on: 0 12/16/2024 12:50 PM EDT History and Physical Notes * HPI (History of Present Illness) Category Sub-Category Detail Notes Category Not es ENT/respiratory sore throat Pt states that M on11/15 t, feels scratchy, swallowing painful, concurrent with cough Dermatology Swelling Pt states that b oth legs were swollen but this resolved on Thursday 11/16 Examination Category Sub-Category Detail Notes Category Not es ENT/Respiratory Oral cavity : erythema without exudate on pharynx, PND present Sinuses : tender maxillary sin uses bilaterally Ears: auditory canals norm al bilaterally, TM's WNL Neck : supple, mildly tende r anterior adenopathy Heart : RRR, normal S1 S2, n o murmurs Lungs: clear to auscultatio n bilaterally Extremities : no edema General Appearance: NAD Nose : turbinates red, rachel ested
--- OUTSIDE RECORDS SUMMARY | 2024-12-02 12:30 | XMS_ITS ---
Author Organization [facility] Address [address] [place] [id number] Care Team Providers Care Cost Report Clerk Name Role Phone Mary Le Primary Care Provider Sophia Kent Unavailable [phone] Allergies Allergen (clinical drug ingredient) Drug/Non Drug Allergy documented on EMR Reaction Allergy Type Onset Date Status codeine Codeine Unknown Drug Allergy Active Results Component Value Reference Range Notes Urinalysis - Inhouse Reviewed date:12/02/2024 04:50:44 PM Interpretation: Performing Lab: Notes/Report: Color/Clarity yellow/ clear Leuk neg Nitrite neg Urobili 3.2 Protein neg pH 5.5 Blood 2+ Sp. Gr. 1.025 Ketone neg Bili neg Gluc neg P-Culture, Urine Reviewed date:12/08/2024 11:54:52 AM Interpretation:No Growth Performing Lab: Notes/Report: Test performed by [employer] [place] [address] [place] [address] , [address], [place] [address] Baldemar De Santiago MD, Merchandise Manager CLIA: [id number] Specimen Source Urine - Void Culture, Urine See Below Final Report : No Significant Growth TEN-Vaginal Infection panel Reviewed date:12/08/2024 09:42:56 AM Interpretation:Abnormal Performing Lab: Notes/Report: Abnormal REASON FOR VISIT Not Improved Medications Medication SIG (Take, Route, Frequency, Duration) Notes Start Date End Date Status Triamcinolone Acetonide 0.1 % 1 application Externally three times a day, prn 10/28/2024 Active busPIRone HCl 15 MG 1 tablet Orally Twic e a day Active Levothyroxine Sodium 150 MCG 1 tablet in the morning on an empty stomach Orally Once a day; Duration: 30 days 10/28/2024 Active Mupirocin 2 % 1 leobardo applied topica lly in the nose daily 12/20/2021 Active Omeprazole 40 MG 1 capsule 30 minutes before morning meal Orally Once a day Active Linezolid 600 MG 1 tablet Orally ever y 12 hrs; Duration: 10 days 11/10/2024 Active amLODIPine Besylate-Valsartan 5-160 MG 1 tab(s) orally once a day; Duration: 90 days Active Atorvastatin Calcium 10 MG 1 tablet Oral ly Once a day; Duration: 90 days Active Albuterol Sulfate HFA 108 (90 Base) MCG/ACT 1-2 PUFFS Inhalation 4 times a day Active Potassium Chloride ER 10 MEQ 1 tablet with food Orally Twice a day; Duration: 90 days Active Levalbuterol Tartrate 45 MCG/ACT 2 puff as needed Inhalation qid prn 10/29/2023 Active Triamterene-HCTZ 37.5-25 MG TAKE 1 TABLE T BY MOUTH EVERY DAY; Duration: 90 Active buPROPion HCl ER (XL) 300 MG TAKE 1 TABLET BY MOUTH DAILY; Duration: 90 Active Vital Signs Blood pressure systolic 134 mm Hg 12/03/19 25 Blood pressure diastolic 76 mm Hg 025 Heart Rate 81 /min 12/02/2024 Height 60 in 12/02/2024 Weight 112.4 lbs 12/02/2024 BMI 21.95 kg/m2 12/02/2024 Encounters Encounter Location Date Provider Diagnosis [facility] [address], [place] [phone] 12/02/2024 Sophia Kent Essential hypertensi on I10 ; Acute vaginitis N76.0 and Dysuria R30.0 Assessments Encounter Date Diagnosis (ICD Code) Assessment Notes Treatment Notes Treatment Clinical Notes Section Notes 12/02/2024 Essential hypertension (ICD-10 - I10) Pt needs refills on amlodipine/shavon sartan 12/02/2024 Acute vaginitis (ICD-10 - N76.0) 12/02/2024 Dysuria (ICD-10 - R30.0) Plan Of Treatment Medication Medication Name Sig Start Date Stop Date Notes amLODIPine Besylate-Valsarta n 5-160 MG 1 tab(s) orally once a day; Duration: 90 days Treatment Notes Assessment Notes Essential hypertension Pt needs refills on amlodipine/valsartan Next Appt Details Follow Up: via phone to repo rt test results, Reason: Provider Name:Sophia Rivera Allyson y, 12/17/2024 03:15:00 PM, [address] [facility] [address] [facility], [address], [place], [place], [phone], Provider Name:Mary Wright er, 01/13/2025 01:45:00 PM, [address] [facility] [address] [facility], [address], [place], [place], [phone], Progress Notes * Sivan MONTIELaDOB:1960 (64 yo F)Acc No.[id number]:12/02/2024 Progress Notes Patient: Comfort ALMEIDA Provider: DUDLEY Valdez :1960 A ge:64 Y S ex:Female Date:12/02/2024 Address:[address] [place], [place] [id number] Pcp:Mary Le Subjective: * Chief Complaints: * 1 . Not Improved. * HPI: U rology: 64 year old female presents with c/o burning sensation b urning all the time . c/o Pressure P t states pressure all the time . Denies : flank pain. H PI: Patient is here today for P t needs refills. * ROS: D ERMATOLOGY: no R anupama. n o H kb. G ASTROENTEROLOGY: no N ausea. n o V omiting. n o D iarrhea.? U ROLOGY: no D ifficulty urinating. n o B lood in urine. * Medical History: H ypertension, Hypothyroidism, Depression, Anxiety, Lung Cancer Stage I - chemo treatments - Dr. Saloni Mckeon - [facility] dx. May 01, 2017, Saw Dr. Jenkins in November 2022. * Surgical History: G allstones 1969, Arm Surgery 1979, Hysterectomy 2006, lymph node biopsy left neck, metastatic squamous cell CA 03/2012, panendoscopy 03/2012, left neck dissection, nodes negative 04/08/2012, Nasal 02/03/2014, Partial Mid RT Lung - cancer - Chemo Treatments , Port Placement 06/30/2017. * Hospitalization/Major Diagno stic Procedure: p neumonia 1993, [facility] - Lung Cancer Removal 06/02-. * Family [...] C odeine. Objective: * Vitals: W t: 112.4, Temp: 98.4, BP: 134/76, HR: 81, Nurse: pe, Ht: 60, BMI:21.95. * Examination: G eneral Examination: General Appearance: N AD. C hest: n ormal shape and expansion. H eart: R SR. L ungs: c lear to auscultation. A bdomen: b owel sounds present, soft and nontender. Assessment: * Assessment: 1. E ssential hypertension - I10 (Primary) S pecify :with hypotension 2 . A cute vaginitis - N76.0 3 . D ysuria - R30.0 ? Plan: * Treatment: 2. A cute vaginitis L AB: TEN-Vaginal Infection panel (Collection Date & Time - 12/02/2024) A bnormal 3.?Dysuria?LAB: Urinalysis - Inhouse (Collection Date & Time - 12/02/2024)* Value Reference Range C olor/Clarity yellow/ clear * L euk neg * N itrite neg * U robili 3.2 * P rotein neg * p H 5.5 * B lood 2+ * S p. Gr. 1.025 * K etone neg * B valeria neg * G katie neg * Liat Marie 12/02/2024 0 4:40:07 PM EDT > Provider reviewed results while patient in office.Sophia Kent 12/02/2024 04:50:42 PM EDT > ?LAB: P-Culture, Urine (Collection Date & Time - 12/03/2024 08:05 AM)?No Growth* Value Reference Range C ulture, Urine See Below - * S pecimen Source Urine - Void - * Amanda Weber 12/08/2024 11: 54:47 AM EDT > see TE * Procedure Codes: 8 1002 Urinalysis, no micro, 3075F SYST BP GE 130 - 139MM HG, 3078F DIAST BP < 80 MM HG * Follow Up: v ia phone to report test results * Images: Billing Information: * Visit Code: 06116 Office Visit, Est Pt., Level 3. * Procedure Codes: 14132 Urinalysis, no micro. 3075F SYST BP GE 130 - 139MM HG. 3078F DIAST BP < 80 MM HG. * Electronic signature of Andreina ta Crowdy , PA on 12/16/2024 at 12:51 PM EDT Sign off status: Pending * Provider: DUDLEY Valdez Date: 12/02/2024 Generated for Cassandra dotson/Glendy/eTangelicasmitting on: 12/16/2024 12:51 PM EDT History and Physical Notes * HPI (History of Present Illness) Category Sub-Category Detail Notes Category Not es Urology burning sensation burning all the time flank pain Pressure Pt states pressure a ll the time HPI Patient is here today for Pt needs refill s Examination Category Sub-Category Detail Notes Category Not es General Examination Heart: RSR Lungs: clear to auscultatio n Abdomen: bowel sounds present , soft and nontender General Appearance: NAD Chest: normal shape and exp ansion
--- OUTSIDE RECORDS SUMMARY | 2024-12-07 05:54 | XMS_ITS ---
Author Organization [facility] Address [address] [facility] [address] [place] [phone] Care Team Providers Care Inside Steward/Stewardess Name Role Phone Mary Le Primary Care Provider REASON FOR VISIT due col,shade,LDCT Encounters Encounter Location Date Provider Diagnosis [facility] [address] [place] [id number] 12/07/2024 Mary Le Positive colorectal cancer screening using Cologuard test R19.5 ; Screening for colon cancer Z12.11 ; Screening for breast cancer Z12.39 ; Screening for lung cancer Z12.2 and History of tobacco use Z87.891 Assessments Encounter Date Diagnosis (ICD Code) Assessment Notes Treatment Notes Treatment Clinical Notes Section Notes 12/07/2024 Positive colorectal cancer screening using Cologuard test (ICD-10 - R19.5) 12/07/2024 Screening for colon cancer (ICD-10 - Z12.11) 12/07/2024 Screening for breast cancer (ICD-10 - Z12.39) 12/07/2024 Screening for lung cancer (ICD-10 - Z12.2) 12/07/2024 History of tobacco use (ICD-10 - Z87.891) Plan Of Treatment Pending Test Test Name Order Date colonoscopy 12/07/2024 Mammogram 12/07/2024 CT Scan : Chest, low dose 12/07/2024 Next Appt Details Provider Name:Sophia currie, 12/17/2024 03:15:00 PM, [address], [address], [place], [phone], Provider Name:Mary Wright er, 01/13/2025 01:45:00 PM, [address], [address], [place], [place], [phone], Progress Notes * Sivan MONTIELaDOB:1960 (64 yo F)Acc No.[id number]:12/07/2024 Patient: Comfort ALMEIDA :1960 A ge:64 Y S ex:Female Address:[address] [place] [id number] Subjective: * Chief Complaints: * d ue col,shade,LDCT * Medical History: * Surgical History: * Hospitalization/Major Diagno stic Procedure: * Medications: Objective: * Vitals: * Physical Examination: Assessment: * Assessment: 1. P ositive colorectal cancer screening using Cologuard test - R19.5 (Primary) ?2. S creening for colon cancer - Z12.11 3 . S creening for breast cancer - Z12.39 4 . S creening for lung cancer - Z12.2 5 . H istory of tobacco use - Z87.891 Plan: * Treatment: 2.?Screening for colon cancer?Imaging: colonoscopy* Dionne Khan 12/07/2024 11:1 8:32 AM EDT > POSITIVE cologuard test. Sent to [facility] for referral 3.?Screening for breast cancer?Imaging: Mammogram* Dionne Khan 12/07/2024 11:1 9:27 AM EDT > Mammogram due after 03/10/2025. sent to [facility] for referral to [facility] 4.?Screening for lung cancer?Imaging: CT Scan : Chest, low dose* Dionne Khan 12/07/2024 11:2 0:01 AM EDT > sent to [facility] for referral to [facility] 5.?History of tobacco use?Imaging: CT Scan : Chest, low dose* Dionne Khan 12/07/2024 11:2 0:01 AM EDT > sent to [facility] for referral to [facility] * Procedure Codes: * true * Date: Generated for Printi nila/Faxing/eTransmitting on: 0 12/16/2024 12:50 PM EDT
--- NOTE | 2024-12-16 12:49 | CT_ITS ---
FINAL REPORT TECHNIQUE: Axial CT images of the chest were obtained without contrast. Low-dose protocol was utilized. This study was performed with techniques to keep radiation doses as low as reasonably achievable (ALARA). Individualized dose reduction techniques using automated exposure control or adjustment of mA and/or kV according to the patient's size were employed. CLINICAL HISTORY: SCREENING current smoker 1ppd x48 years. hx lung cancer COMPARISON: None FINDINGS: CT CHEST WITHOUT, LOW DOSE SCREENING CT Di Vol: 2.90 mGy DLP: 96.90 mGy*cm No suspicious mediastinal mass or adenopathy. There are nodules in the lateral left breast measuring up to 11 mm, well seen on image 41 of series 3. The heart size is normal. There is no pleural or pericardial effusion. The lung windows show moderate changes of centrilobular emphysema. There is a calcified granuloma in the left lower lobe. Scarring is noted in the periphery of the right lung base. There is a noncalcified nodule in the anterior right lower lobe measuring 5 mm on image 38 of series 4.. Limited images of the upper abdomen demonstrate no acute findings. IMPRESSION: Right lower lobe nodule. LR Category 2S: 12 month follow-up low-dose chest CT is recommended per Fleischner criteria. Modifier S: Left breast nodules. Recommend mammography and/or ultrasound to better characterize. Reviewed, Interpreted and Dictated by Sandro Sawyer MD Transcribed by Diana Schultz Authenticated and [facility]
--- OUTSIDE RECORDS SUMMARY | 2024-12-16 12:50 | XMS_ITS | Patient Health Record ---
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 Name Role Phone Mary Le Primary Care Provider [phone] Gely Santana Unavailable [phone] Deni Tabor Unavailable [phone] Niya Haines Unavailable [phone] Sophia Kent Unavailable [phone] Allergies Allergen (clinical drug ingredient) Drug/Non Drug [...] - 38 plat 252 100 - 400 P-Culture, Urine Reviewed date:12/08/2024 11:54:52 AM Interpretation:No Growth Performing Lab: Notes/Report: Test performed by [facility] [address] [place] [address] , [address], [place] [address] Baldemar De Santiago MD, [employer] CLIA: [id number] Specimen Source Urine - Void Culture, Urine See Below Final Report : No Significant Growth TEN-Vaginal Infection panel Reviewed date:12/08/2024 09:42:56 AM Interpretation:Abnormal Performing Lab: Notes/Report: Abnormal Covid test (in house) Reviewed date:02/10/2024 01:39:30 PM Interpretation:neg Performing Lab: Notes/Report: neg Result: neg Bone density Reviewed date:03/22/2024 04:47:53 PM Interpretation:osteopenia bilateral hips Performing Lab: Notes/Report: osteopenia bilateral hips Bone density osteopenia bilateral hips Mammogram Reviewed date:03/18/2024 08:59:08 AM Interpretation:neg; need annual f/u Performing Lab: Notes/Report: neg; need annual f/u CBC Fingerstick (in house) Reviewed date:10/28/2024 02:44:09 PM Interpretation: Performing Lab: Notes/Report: wbc 6.9 3.5 - 10 lym 20.7% 15 - 50 mid 6.4% 2 - 15 gran 72.9% 35 - 80 rbc 4.49 3.5 - 5.5 hgb 13.6 11.5 - 16.5 hct 41.4 35 - 55 mcv 92.3 75 - 100 mch 30.3 25 - 35 mchc 32.8 31 - 38 plat 280 100 - 400 Cologuard Reviewed date:12/01/2024 08:31:51 AM Interpretation:Positive Performing Lab: Notes/Report: Positive Cologuard positive TEN-Vaginal Infection panel Reviewed date:11/09/2024 09:56:50 AM Interpretation: Performing Lab: Notes/Report: Urinalysis - Inhouse Reviewed date:12/02/2024 04:50:44 PM Interpretation: Performing Lab: Notes/Report: Color/Clarity yellow/ clear Leuk neg Nitrite neg Urobili 3.2 Protein neg pH 5.5 Blood 2+ Sp. Gr. 1.025 Ketone neg Bili neg Gluc neg TEN-Vaginal Infection panel Reviewed date:11/10/2024 01:59:06 PM Interpretation:see TE and duplicate order Performing Lab: Notes/Report: see TE and duplicate order Influenza Screen (in house) Reviewed date:02/10/2024 01:39:51 PM Interpretation:neg Performing Lab: Notes/Report: neg results neg CBC Fingerstick (in house) Reviewed date:02/10/2024 01:40:08 PM Interpretation: Performing Lab: Notes/Report: wbc 5.5 3.5 - 10 lym 20.8 15 - 50 mid 5.3 2 - 15 gran 73.9 35 - 80 rbc 4.11 3.5 - 5.5 hgb 12.4 11.5 - 16.5 hct 38.1 35 - 55 mcv 92.6 75 - 100 mch 30.2 25 - 35 mchc 32.7 31 - 38 plat 295 100 - 400 P-TSH Reviewed date:11/05/2024 01:35:26 PM Interpretation:Normal Performing Lab: Notes/Report: Test performed by [facility] [address] [place] [address] , [address], [place] [address] Baldemar De Santiago MD, [employer] CLIA: [id number] TSH 0.77 0.43-5.25 mU/L CBC Venipuncture (in house) Reviewed date:03/18/2024 04:40:45 PM Interpretation: Performing Lab: Notes/Report: wbc 5.9 3.5 - 10 lymph 27.6 15 - 50 mid 7.0 2 - 15 gran 65.4 35 - 80 rbc 4.09 3.5 - 5.5 hgb 12.7 11.5 - 16.5 hct 37.9 35 - 55 mcv 92.6 75 - 100 mch 31.2 25 - 35 mchc 33.6 31 - 38 platlet 339 100 - 400 P-Comprehensive Metabolic Pa azra (CMP) Reviewed date:03/19/2024 08:49:36 AM Interpretation: Performing Lab: Notes/Report: Test performed by [facility] [address] [place] [address] , [address], [place] [address] Baldemar De Santiago MD, [employer] CLIA: [id number] Sodium 141 135-145 mmol/L Potassium 4.5 3.5-5.3 mmol/L Chloride 100 97-108 mmol/L CO2 31 22-32 mmol/L Glucose 74 65-99 mg/dL BUN 22 8-23 mg/dL Creatinine 1.11 0.50-1.00 mg/dL Calcium 9.5 8.6-10.4 mg/dL eGFR by Creatinine 56 >59 mL/min/1.73m2 Protein 6.6 6.0-8.3 g/dL Albumin 4.6 3.5-5.3 g/dL Alkaline Phosphatase 94 35-121 IU/L ALT (SGPT) 25 <5-47 IU/L AST (SGOT) 25 <5-40 IU/L Bilirubin, Total 0.3 <0.2-1.2 mg/dL A/G Ratio 2.3 1.1-2.5 P-T4 Free (thyroxine) Reviewed date:03/19/2024 08:49:36 AM Interpretation: Performing Lab: Notes/Report: Test performed by [facility] [address] [place] [address] [place] [address] Baldemar De Santiago MD, [employer] CLIA: [id number] Thyroxine Free (free T4) 1.18 0.86-1.76 ng/dL P-Lipid Panel Reviewed date:03/19/2024 08:49:36 AM Interpretation: Performing Lab: Notes/Report: Test performed by [facility] [address] [place] [address] [place] [address] Baldemar De Santiago MD, [employer] CLIA: [id number] Cholesterol 217 <200 mg/dL Triglycerides 95 <150 mg/dL HDL Cholesterol 61 >39 mg/dL Cholesterol / HDL Ratio 3.56 0.00-4.44 Ratio Non-HDL Cholesterol 156 <130 mg/dL LDL Cholesterol (Calculation) 137 <130 mg/dL LDL Cholesterol Levels* Less than 100 mg/dL Optimal 100 to 129 mg/dL Near Optimal/ Above Optimal 130 to 159 mg/dL Borderline High 160 to 189 mg/dL High 190 mg/dL and above Very High * Categories as recommended by the 2004 ATPIII guidelines LDL/HDL Ratio 2.2 <3.3 Ratio LDL Cholesterol Patient History Test Date: 12/01/2023 LDL Results: 78 Units: mg/dL % Change: - ------- Test Date: 03/18/2024 LDL Results: 137 Units: mg/dL % Change: +75% P-TSH Reviewed date:03/19/2024 08:49:36 AM Interpretation: Performing Lab: Notes/Report: Test performed by [facility] [place] , [address], [place] [address] Baldemar De Santiago MD, [employer] CLIA: [id number] TSH 8.02 0.43-5.25 mU/L CBC Venipuncture (in house) Reviewed date:09/24/2024 11:59:23 AM Interpretation:Normal Performing Lab: Notes/Report: Normal wbc 6.8 3.5 - 10 lymph 23.1% 15 - 50 mid 5.6% 2 - 15 gran 71.3% 35 - 80 rbc 4.20 3.5 - 5.5 hgb 12.9 11.5 - 16.5 hct 37.9 35 - 55 mcv 90.1 75 - 100 mch 30.7 25 - 35 mchc 34.1 31 - 38 platlet 382 100 - 400 P-Comprehensive Metabolic Pa azra (CMP) Reviewed date:09/24/2024 11:59:23 AM Interpretation:Creat 1.12, Newton 11.7, eGFR 55 Performing Lab: Notes/Report: Test performed by [facility] [place] , [address], [place] [address] Baldemar De Santiago MD, [employer] CLIA: [id number] Sodium 141 135-145 mmol/L Potassium 5.0 3.5-5.3 mmol/L Chloride 98 97-108 mmol/L CO2 31 22-32 mmol/L Glucose 83 65-99 mg/dL BUN 18 8-23 mg/dL Creatinine 1.12 0.50-1.00 mg/dL Calcium 11.7 8.6-10.4 mg/dL eGFR by Creatinine 55 >59 mL/min/1.73m2 Protein 6.6 6.0-8.3 g/dL Albumin 4.5 3.5-5.3 g/dL Alkaline Phosphatase 81 35-121 IU/L ALT (SGPT) 23 <5-47 IU/L AST (SGOT) 24 <5-40 IU/L Bilirubin, Total 0.2 <0.2-1.2 mg/dL A/G Ratio 2.1 1.1-2.5 P-Lipid Panel Reviewed date:09/24/2024 11:59:23 AM Interpretation:trigs 168 Performing Lab: Notes/Report: Test performed by [facility], [address] , [address], [place] [address] Baldemar De Santiago MD, [employer] CLIA: [id number] Cholesterol 148 <200 mg/dL Triglycerides 168 <150 mg/dL HDL Cholesterol 53 >39 mg/dL Cholesterol / HDL Ratio 2.79 0.00-4.44 Ratio Non-HDL Cholesterol 95 <130 mg/dL LDL Cholesterol (Calculation) 61 <130 mg/dL LDL Cholesterol Levels* Less than 100 mg/dL Optimal 100 to 129 mg/dL Near Optimal/ Above Optimal 130 to 159 mg/dL Borderline High 160 to 189 mg/dL High 190 mg/dL and above Very High * Categories as recommended by the 2004 ATPIII guidelines LDL/HDL Ratio 1.2 <3.3 Ratio LDL Cholesterol Patient History Test Date: 12/01/2023 LDL Results: 78 Units: mg/dL % Change: - ------- Test Date: 03/18/2024 LDL Results: 137 Units: mg/dL % Change: +75% ------- Test Date: 09/13/2024 LDL Results: 61 Units: mg/dL % Change: -55% P-TSH Reviewed date:09/24/2024 11:59:23 AM Interpretation:65.00 Performing Lab: Notes/Report: Test performed by [facility] [address] , [address], [place] [address] Baldemar De Santiago MD, [employer] CLIA: [id number] TSH 65.00 0.43-5.25 mU/L Medications Medication SIG (Take, Route, Frequency, Duration) Notes Start Date End Date Status Ciprofloxacin HCl 500 MG 1 tablet Orally every 12 hrs; Duration: 7 days 12/08/2024 Active Triamcinolone Acetonide 0.1 % 1 application Externally three times a day, prn 10/28/2024 Active Linezolid 600 MG 1 tablet Orally ever y 12 hrs; Duration: 10 days 11/10/2024 Active amLODIPine Besylate-Valsartan 5-160 MG 1 tab(s) orally once a day; Duration: 90 days Active busPIRone HCl 15 MG 1 tablet Orally Twic e a day Active Atorvastatin Calcium 10 MG 1 tablet Oral ly Once a day; Duration: 90 days Active Levothyroxine Sodium 150 MCG 1 tablet in the morning on an empty stomach Orally Once a day; Duration: 30 days 10/28/2024 Active Albuterol Sulfate HFA 108 (90 Base) MCG/ACT 1-2 PUFFS Inhalation 4 times a day Active Levalbuterol Tartrate 45 MCG/ACT 2 puff as needed Inhalation qid prn 10/29/2023 Active Mupirocin 2 % 1 leobardo applied topica lly in the nose daily 12/20/2021 Active Omeprazole 40 MG 1 capsule 30 minutes before morning meal Orally Once a day Active Triamterene-HCTZ 37.5-25 MG TAKE 1 TABLE T BY MOUTH EVERY DAY; Duration: 90 Active Potassium Chloride ER 10 MEQ 1 tablet with food Orally Twice a day; Duration: 90 days Active buPROPion HCl ER (XL) 300 MG TAKE 1 TABLET BY MOUTH DAILY; Duration: 90 Active Immunizations Vaccine Route Administration Date Status Comme nts COVID 19 Pfizer Unknown 11/29/2020 Administered COVID 19 Pfizer Unknown 12/20/2020 Administered Fluzone PF Quad (6-35 months) Unknown 04/16/2022 Administered Fluzone Quad (6months&older) IM Intramuscular 02/16/2018 Administered Fluzone Quad (6months&older) IM Intramuscular 05/10/2019 Administered Hepatitis B (20 and more) Unknown 08/27/1999 Administer ed Hepatitis B (20 and more) Unknown 10/01/1999 Administer ed Hepatitis B (20 and more) Unknown 03/06/2000 Administer ed PNEUMOVAX 23 VACCINE IM Intramuscular 04/27/2014 Administe red ppd ID Intradermal 12/22/2019 Administered Prevnar (PCV20) Unknown 04/16/2022 Administered Tetanus Tdap-Adacel (over 7yrs) IM Intramuscular 10/28/2024 Administered xFluzone (6mos and older)-trivalent IM Intramuscular 04/27/2014 Administered Problems Problem Type SNOMED Code ICD Code Onset Dates Problem Status W/U Status Risk Notes Problem Hypothyroidism (78815440) Hypothyroidism, unspecified (E03.9) Active confirmed Problem Gastroesophageal reflux disease (117057445) GERD (gastroesophageal reflux disease) (K21.9) Active confirmed Problem Essential hypertension (76662085) Essential (primary) hypertension (I10) Active confirmed Problem Sinusitis (68069424) Sinusitis (J32.9) Active confirmed Problem Essential hypertension (03617846) Essential hypertension (I10) Active confirmed Problem Anxiety (16899769) Anxiety (F41.9) Active confi rmed Problem Environmental allergy (207764002) Environmental allergies (Z91.048) Active confirmed Problem Mixed anxiety and depressive disorder (805829561) Depression with anxiety (F41.8) Active confirmed Problem Personal history of primary malignant neoplasm of lung (809751956) History of lung cancer (Z85.118) Active confirmed Problem Hot flashes (984415401) Hot flashes (N95.1) Active confirmed Problem Environmental allergy (063007925) Environmental allergies (Z91.09) Active confirmed Problem Primary malignant neoplasm (988025785) Malignant (primary) neoplasm, unspecified (C80.1) Active confirmed Problem Mixed hyperlipidemia (689950427) Mixed hyperlipidemia (E78.2) Active confirmed Problem Polyneuropathy (09012730) Polyneuropathy in diseases classified elsewhere (G63) Active confirmed Problem Acquired hypothyroidism (840564397) Acquired hypothyroidism (E03.9) Active confirmed Problem Renal insufficiency (126349101) Renal insufficiency (N28.9) Active confirmed Problem Osteoporosis (48603769) Osteoporosis (M81.0) Active confirmed Problem Anemia (884588433) Anemia, unspecified type (D64.9) Active confirmed Problem Tobacco use (809275592) Tobacco use disorder (F17.200) Active confirmed Problem 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 confirmed Problem Fibrocystic breast changes (77521738) Fibrocystic breast disease (FCBD), unspecified laterality (N60.19) Active confirmed Problem Personal history of primary malignant neoplasm of bronchus (663303739) H/O malignant neoplasm of lung (Z85.118) Active confirmed Problem History of lung lobectomy (situation) (09889261055354012) 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 [address] [place] [id number] 01/06/2024 Niya Haines Sinus[facility] J32.9 [facility] [address] [place] [id number] 02/10/2024 Niya Haines Sinusitis J32.9 ; Nausea R11.0 ; URI (upper respiratory infection) J06.9 ; Breast cancer screening Z12.39 and Osteoporosis M81.0 [facility] [address] [place] [id number] 03/18/2024 Sophia Kent Acquired hypothyroid ism E03.9 ; Depression with anxiety F41.8 ; Essential hypertension I10 ; Hypokalemia E87.6 ; Renal insufficiency N28.9 ; History of lung cancer Z85.118 ; Anemia, unspecified type D64.9 and Mixed hyperlipidemia E78.2 [facility] [address] [place] [id number] 05/17/[address] [facility] [address] [place], [place] [id number] 09/13/2024 Mary Le Acquired hypothyroid ism E03.9 ; Essential hypertension I10 ; Mixed hyperlipidemia E78.2 ; H/O malignant neoplasm of pharynx Z85.819 ; History of lung cancer Z85.118 ; Immunization due Z23 ; Anemia, unspecified type D64.9 ; Anxiety F41.9 and BMI 21.0-21.9, adult Z68.21 [facility] [address] [place] [id number] 10/25/2024 Mary Le Acquired hypothyroid ism E03.9 [facility] [address] [place] [id number] 10/28/2024 Sophia Kent Rash R21 ; Acquired hypothyroidism E03.9 ; Colon cancer screening Z12.11 ; Acute vaginitis N76.0 ; Sinus congestion R09.81 ; Encounter for immunization Z23 and BMI 21.0-21.9, adult Z68.21 [facility] [address] [place], [place] [id number] 11/05/2024 Sophia Donte [facility] [address] [place], [place] [id number] 11/18/2024 Sophia Kent Acute URI J06.9 ; Le g swelling M79.89 and BMI 22.0-22.9, adult Z68.22 [facility] [address] [place] [id number] 12/02/2024 Sophia Kent Essential hypertensi on I10 ; Acute vaginitis N76.0 and Dysuria R30.0 [facility] [address] [place] [id number] 02/10/2024 Deni Suffolk Depression with anxi ety F41.8 [facility] [address] [place], [place] [id number] 03/19/2024 Sophia Crowsandra [facility] [address] [place] [id number] 05/18/2024 J Leonidas Rey Depression with anxi ety F41.8 [facility] [address] [place], [place] [id number] 07/22/2024 J Leonidas Rey Depression with anxi ety F41.8 [facility] [address] [place] [id number] 07/22/2024 J Leonidas Rey [facility] [address] [place], [place] [id number] 09/24/2024 J Leonidas Rey [facility] [address] [place] [id number] 10/06/2024 Mary Le [facility] [address] [place] [id number] 11/03/2024 Mary Le [facility] [address] [place] [id number] 11/09/2024 Sophia Kent [facility] [address] [place], [place] [id number] 11/10/2024 Mary Le [facility] [address] [place], [place] [id number] 12/01/2024 Sophia Kent [facility] [address] [place], [place] [id number] 12/07/2024 Mary Le Positive colorectal cancer screening using Cologuard test R19.5 ; Screening for colon cancer Z12.11 ; Screening for breast cancer Z12.39 ; Screening for lung cancer Z12.2 and History of tobacco use Z87.891 [facility] [address] [place], [place] [id number] 12/08/2024 Gely Santana Assessments Encounter Date Diagnosis (ICD Code) Assessment Notes Treatment Notes Treatment Clinical Notes Section Notes 01/06/2024 Sinusitis (ICD-10 - J32.9) fluids, rest, supportive measures for fever/symptom relief 02/10/2024 Sinusitis (ICD-10 - J32.9) will schedule her annual ENT appt 02/10/2024 Nausea (ICD-10 - R11.0) bland diet with good water intake 02/10/2024 Depression with anxiety (ICD-10 - F41.8) 03/18/2024 Depression with anxiety (ICD-10 - F41.8) Has been off since Mar 08 and will need to remain off until /. She is going to go directly down to the psychiatry office to get genetic testing done after this appt and schedule an appt with Ximena Jones. She is also going to call Gracie Bailey's office to get some counseling. 05/18/2024 Depression with anxiety (ICD-10 - F41.8) 07/22/2024 Depression with anxiety (ICD-10 - F41.8) 09/13/2024 Essential hypertension (ICD-10 - I10) 03/18/2024 Acquired hypothyroidism (ICD-10 - E03.9) 09/13/2024 Acquired hypothyroidism (ICD-10 - E03.9) 10/25/2024 Acquired hypothyroidism (ICD-10 - E03.9) 10/28/2024 Rash (ICD-10 - R21) v 10/28/2024 Acquired hypothyroidism (ICD-10 - E03.9) Repeat TSH showed great improvement. Will continue this dose and recheck in Jan. v 11/18/2024 Acute URI (ICD-10 - J06.9) fluids, rest, supportive measures for fever/symptom relief, has OTC cough medication at home 11/18/2024 Leg swelling (ICD-10 - M79.89) Resolved. 12/02/2024 Essential hypertension (ICD-10 - I10) Pt needs refills on amlodipine/valsa rtan 12/02/2024 Acute vaginitis (ICD-10 - N76.0) 12/07/2024 Screening for colon cancer (ICD-10 - Z12.11) 12/07/2024 Positive colorectal cancer screening using Cologuard test (ICD-10 - R19.5) 12/07/2024 Screening for breast cancer (ICD-10 - Z12.39) 12/02/2024 Dysuria (ICD-10 - R30.0) 11/18/2024 BMI 22.0-22.9, adult (ICD-10 - Z68.22) 10/28/2024 Colon cancer screening (ICD-10 - Z12.11) v 09/13/2024 Mixed hyperlipidemia (ICD-10 - E78.2) 03/18/2024 Essential hypertension (ICD-10 - I10) She is unsure if she is taking the extra valsartan pill. She is going to call back once she checks her medications at home. 02/10/2024 URI (upper respiratory infection) (ICD-10 - J06.9) fluids, rest, supportive measures for fever/symptom relief 02/10/2024 Breast cancer screening (ICD-10 - Z12.39) 03/18/2024 Hypokalemia (ICD-10 - E87.6) 09/13/2024 H/O malignant neoplasm of pharynx (ICD-10 - Z85.819) 10/28/2024 Acute vaginitis (ICD-10 - N76.0) v 10/28/2024 Sinus congestion (ICD-10 - R09.81) v 12/07/2024 Screening for lung cancer (ICD-10 - Z12.2) 09/13/2024 History of lung cancer (ICD-10 - Z85.118) 03/18/2024 Renal insufficiency (ICD-10 - N28.9) 02/10/2024 Osteoporosis (ICD-10 - M81.0) 09/13/2024 Immunization due (ICD-10 - Z23) 03/18/2024 History of lung cancer (ICD-10 - Z85.118) 12/07/2024 History of tobacco use (ICD-10 - Z87.891) 10/28/2024 Encounter for immunization (ICD-10 - Z23) v 10/28/2024 BMI 21.0-21.9, adult (ICD-10 - Z68.21) v 03/18/2024 Anemia, unspecified type (ICD-10 - D64.9) 09/13/2024 Anemia, unspecified type (ICD-10 - D64.9) 03/18/2024 Mixed hyperlipidemia (ICD-10 - E78.2) 09/13/2024 Anxiety (ICD-10 - F41.9) 09/13/2024 BMI 21.0-21.9, adult (ICD-10 - Z68.21) 01/06/2024 Other she is working on getting air conditioning 02/10/2024 Other oncology appt i n Feb 2024; reviewed labs with pt ; kidney function has improved; kidney US normal 11/04/2023; colonoscopy scheduled for Feb 2024; too sick for vaccines today Plan Of Treatment Pending Test Test Name Order Date colonoscopy 07/17/2023 colonoscopy 12/07/2024 DEXA Hip and Spine 10/15/2023 Mammogram 10/15/2023 Mammogram 12/07/2024 Mammogram 02/03/2023 CT Scan : Head with and without contrast 06/06/2022 CT Scan : Chest, low dose 12/07/2024 Cologuard 10/15/2023 Next Appt Details Provider Name:Sophia Valadez y, 12/17/2024 03:15:00 PM, [address], [place], [id number], Provider Name:Mary Wright er, 01/13/2025 01:45:00 PM, [address], [address], [place], [id number], Insurance Providers Payer Name Payer Address Payer Phone Subscriber Number Group Number Insured Name Patient Relationship to Insured Coverage Start Date Coverage End Date [employer] [address] [place] [address] [id number] Comfort Montiel Self - patient is the insured Medical (General) History Medical History History ICD Code Hypertension Hypothyroidism Depression Anxiety Lung Cancer Stage I - chemo treatments - Dr. Saloni Mckeon - [facility] dx. May 01, [address] Jenkins in November 2022 Surgical History Surgery Date(Month/Year) Gallstones 1970 Arm Surgery 1979 Hysterectomy 2006 lymph node biopsy left neck, metastatic squamous cell CA 03/2012 panendoscopy 03/2012 left neck dissection, nodes negative Nasal 02/03/2014 Partial Mid RT Lung - cancer - Chemo Fausto atments Port Placement 06/30/2017 Hospitalization History Reason Date(Month/Year) [facility] - Lung Cancer Removal 06/02- pneumonia 1994
== END 2024-12-16 23:59 | disposition home or self-care (01) ==
LOC: RAD 12:49
PROVIDERS: PCP Family Medicine; Visit Provider Family Medicine
DX: Z12.2 Encounter for screening for malignant neoplasm of respiratory organs (principal); R91.1 Solitary pulmonary nodule; J43.2 Centrilobular emphysema; F17.210 Nicotine dependence, cigarettes, uncomplicated; Z85.118 Personal history of other malignant neoplasm of bronchus and lung
CPT/HCPCS: 71271

== ENCOUNTER 2025-01-28 14:33 | Outpatient (CLI) | payer BC, SELFPAY ==
--- NOTE | 2025-01-28 14:34 | MM_ITS ---
PROCEDURE INFORMATION: Exam: US Left Breast, Complete MG Left Diagnostic Breast Tomosynthesis Exam date and time: 01/28/2025 2:56 PM Age: 64 years old Clinical indication: CT scan of the lungs dated 12/16/2024 reported left lateral breast nodularity TECHNIQUE: Imaging protocol: Complete ultrasound of all four quadrants of the left breast and the retroareolar regions, including ultrasound of the axilla when performed. Left Diagnostic tomosynthesis and 2D mammography including computer-aided detection (CAD) when performed. Unilateral or bilateral exam. COMPARISON: MG MM DIG MAMM DX UNILAT LT CAD 01/28/2025 2:43 PM FINDINGS: MAMMOGRAPHY: Breast composition: The breasts are heterogeneously dense, which may obscure small masses. Breast mammogram findings: There is no stellate mass, architectural distortion or suspicious microcalcifications in either breast to suggest malignancy. No skin thickening or axillary adenopathy. No new or suspicious masses. Spot compression views of the left lateral breast demonstrates a stable persistent round 1.2 cm mass ULTRASOUND: Breast ultrasound findings: Sonographic images of the left 4 o'clock axis 2 cm from the nipple demonstrates a 1.4 cm cyst corresponding to the stable dominant mass on mammography as well as the finding on CT scan. Additional cystic change in the left immediate retro areolar region. In the left 3 o'clock axis 3 cm from the nipple is a partially circumscribed hypoechoic more solid-appearing mass measuring 0.5 x 0.6 x 0.4 cm. No axillary adenopathy. IMPRESSION: Indeterminate solid-appearing mass only well seen on sonography in the left 3 o'clock axis 3 cm from the nipple. Ultrasound-guided core biopsy is recommended for further evaluation ASSESSMENT: BI-RADS Category 4: Suspicious.
== END 2025-01-28 23:59 | disposition home or self-care (01) ==
LOC: RAD 14:33
PROVIDERS: PCP Family Medicine; Visit Provider Physician Assistant
DX: N63.25 Unspecified lump in the left breast, overlapping quadrants (principal); N60.12 Diffuse cystic mastopathy of left breast; R92.333 Mammographic heterogeneous density, bilateral breasts
CPT/HCPCS: 76641; 77061; 77065; G0279

== ENCOUNTER 2025-02-07 09:09 | Day surgery (SDC) | payer BC, SELFPAY ==
--- NOTE | 2025-02-04 08:06 | EXP.HP ---
History of Present Illness *Admission Date: 02/07/25 *Reason for visit:: Positive Cologuard *History of present illness: Mrs. Montiel is a 64-year-old female who is here for screening colonoscopy secondary to a positive Cologuard test. The examination is deemed medically necessary for screening colonoscopy. The patient has been seen, interviewed and examined prior to the procedure by both myself and the anesthesia provider. [facility] Disclaimer: The information contained in this section may have been updated after the patient was seen, as this information can be updated by other users. Medical History Urinary tract infection Pneumonia History of COVID-19 Menopause Osteoporosis History of gastroesophageal reflux (GERD) Hypothyroid Hypertension Cholecystectomy planned Lung cancer History of nasopharyngeal cancer Surgical History H/O wisdom tooth extraction H/O: hysterectomy History of lobectomy of lung Family History Father Lung cancer Other Family history of Alzheimer's disease Family history of COPD (chronic obstructive pulmonary disease) Family history of heart disease Family history of kidney stone Social History Smoking Status: Current every day smoker smoking status stop date: trying to quit alcohol intake: current alcohol intake frequency: holidays/special occasions only substance use type: marijuana current occupational status: retired Travel in the last 8 weeks?: None number of children: 2 number of grandchildren: 1 caffeine: No working smoke detector in home: Yes firearms in home: Yes (in a safe) firearms unloaded and locked: Yes Have you lived/traveled outside US in past 30 days?: No Contact w/someone who lives/traveled outside US past 30 days?: No Exposure to someone with infectious disease in past 14 days?: No Do you have a fever (greater than 100.4 F or 38 C)?: No Have you tested positive for COVID-19?: No Exposed to someone with COVID-19 in past 14 days?: No Do you have a sore throat?: No Do you have a cough?: No Do you have any weakness?: No Do you have any diarrhea?: No Are you experiencing any unusual bleeding?: No Do you have any muscle aches/pain?: No Do you have any abdominal pain?: No Are you experiencing loss of taste or smell?: No Other Medical History Have you received the Flu Vaccine for this season: No Have you received the Pneumonia Vaccine: No Review of Systems Review of Systems Review of systems (narrative): Negative *Cardiovascular Comments: Negative *Gastrointestinal Comments: Negative *Genitourinary Comments: Negative *Musculoskeletal Comments: Negative *Neurologic Comments: Negative Meds Home Medications and Allergies Home Medications ?Medication ?Instructions ?Recorded ?Confirmed ?Type albuterol sulfate 90 mcg/actuation 1 puff inhalation QID PRN Asthma 11/13/21 02/04/25 History aerosol inhaler amlodipine 5 mg-valsartan 160 mg 1 tab PO DAILY 11/13/21 02/04/25 History tablet atorvastatin 10 mg tablet 10 mg PO DAILY 11/13/21 02/04/25 History diazepam 5 mg tablet 5 mg PO TID PRN Anxiety 11/13/21 02/04/25 History potassium chloride 10 mEq 10 meq PO BID 11/13/21 02/04/25 History capsule,extended release triamterene 37.5 1 tab PO DAILY 11/13/21 02/04/25 History mg-hydrochlorothiazide 25 mg tablet levothyroxine 100 mcg tablet 100 mcg PO DAILY 11/26/22 02/04/25 History citalopram 10 mg tablet 10 mg PO DAILY 10/29/23 02/04/25 History bupropion HCl 300 mg 24 hr tablet, 300 mg PO DAILY #90 tabs 10/26/24 02/04/25 Rx extended release buspirone 15 mg tablet 15 mg PO BID 90 days #180 tabs 10/26/24 02/04/25 Rx trazodone 50 mg tablet 50 mg PO QHS #90 tabs 12/20/24 02/04/25 Rx sod picosulf 10 mg-magnes 3.5 175 ml PO DAILY Bowel Prep 2 doses 01/24/25 02/04/25 Rx gram-citric 12 gram/175 mL oral #350 mL solution (Clenpiq) New Prescriptions to Start Prescriptions: Allergies Allergy/AdvReac Type Severity Reaction Status Date / Time codeine Allergy Severe Unknown Verified 02/04/25 13:15 allergy reaction Exam *Routine HEENT Exam Head: Present normocephalic Eye: Present EOMI and PERRL ENT: Present mucous membranes moist *Routine Neck Exam Neck: Present supple *Routine Respiratory Exam Respiratory: Present CTA bilaterally *Routine Cardiovascular Exam Cardiovascular: Present RRR *Routine Abdominal Exam Abdominal: Present soft and normoactive bowel sounds; Absent tenderness *Routine Rectal Exam Rectal:: deferred *Routine Genitalia Exam Genitalia:: deferred *Routine Extremities Exam Extremities: Absent cyanosis, clubbing or edema *Routine Skin Exam Skin: Present warm; Absent rash *Routine Neurological Exam Neurological: Present alert and oriented X3 Assessment and Plan *Assessment and plan (1) Positive colorectal cancer screening using Cologuard test: Status: Acute Category: Medical Code(s): R19.5 - Other fecal abnormalities (2) Screening for colon cancer: Status: Acute Category: Medical Code(s): Z12.11 - Encounter for screening for malignant neoplasm of colon Plan A/P: 1. Positive Cologuard is the preprocedural diagnosis. The patient will be anesthetized/sedated using MAC sedation. The patient has been seen and examined. Cardiac and lung assessment prior to the examination is stable. Proceed with planned screening colonoscopy.
[2025-02-04 13:14] VITALS: BMI 20.1
--- NOTE | 2025-02-07 06:58 | HMH.PROCNOTE ---
[facility] Procedure Note Date: 02/07/25 Time: 11:37 Procedure Note:: Colonoscopy Procedure Report: Colonoscopy with cold snare polypectomy Endoscopist: Billy Phillips II, MD Referring physician: Leonidas Le MD Date of Procedure: February 07, 2025 Equipment: Olympus [id number] adult colonoscope Sedation: MAC sedation Indication: Mrs. Montiel is a 64-year-old female who is here for screening colonoscopy secondary to a positive Cologuard test. The patient reports no abdominal pain, weight loss, change in her bowel habits or rectal bleeding. She reports no family history of colon cancer. This is her first colonoscopy. The examination is deemed medically necessary for screening colonoscopy. Procedure: Prior to the procedure, a history and physical exam was performed, and patient's medications and allergies were reviewed. The risks, benefits and alternatives of the sedation and procedure were discussed with the patient. All questions were answered and informed consent was obtained. The patient was brought to the procedure room. Patient identification and proposed procedure were verified by the physician and the nurse. The patient was placed in a left lateral decubitus position and the scope was passed under direct vision. Throughout the procedure, the patient's blood pressure, pulse, and oxygen saturations were monitored continuously. The colonoscopy was accomplished without difficulty. The patient tolerated the procedure well. Findings: On digital rectal examination there was normal rectal tone. There were no external hemorrhoids. The colonoscope was introduced through the anal canal to the rectum and advanced to the cecum. The ileocecal valve and appendiceal orifice were identified. The scope was advanced a short distance into the ileum which appeared grossly normal. The scope was then withdrawn into the colon. There were 21 colon polyps identified and removed (ascending x 7, transverse x 5, descending x 5 and sigmoid x 4) and all of these ranged in size from 3 to 9 mm with most of these being 4 to 5 mm. All of these were removed via cold snare polypectomy. There were scattered diverticuli in the distal descending and sigmoid colon. There was a smaller rectal vault. Upon retroflexion within the rectum there were grade 1 internal hemorrhoids. The preparation was excellent throughout with [place] Preparation Score of 9. The cecal time was 22 minutes. Impression: 1. Colonic polyps x 21 2. Left-sided diverticulosis 3. Grade 1 internal hemorrhoids Plan: I will follow-up the polyp histology and recommend repeat screening/surveillance colonoscopy in 1 to 2 years.
--- NOTE | 2025-02-07 09:37 | EXP.ANES.CKL ---
[facility] Disclaimer: The information contained in this section may have been updated after the patient was seen, as this information can be updated by other users. Medical History Urinary tract infection Pneumonia History of COVID-19 Menopause Osteoporosis History of gastroesophageal reflux (GERD) Hypothyroid Hypertension Cholecystectomy planned Lung cancer History of nasopharyngeal cancer Surgical History H/O wisdom tooth extraction H/O: hysterectomy History of lobectomy of lung Family History Father Lung cancer Other Family history of Alzheimer's disease Family history of COPD (chronic obstructive pulmonary disease) Family history of heart disease Family history of kidney stone Social History Smoking Status: Current every day smoker smoking status stop date: trying to quit alcohol intake: current alcohol intake frequency: holidays/special occasions only substance use type: marijuana current occupational status: retired Travel in the last 8 weeks?: None number of children: 2 number of grandchildren: 1 working smoke detector in home: Yes firearms in home: Yes (in a safe) firearms unloaded and locked: Yes Have you lived/traveled outside US in past 30 days?: No Contact w/someone who lives/traveled outside US past 30 days?: No Exposure to someone with infectious disease in past 14 days?: No Do you have a fever (greater than 100.4 F or 38 C)?: No Have you tested positive for COVID-19?: No Exposed to someone with COVID-19 in past 14 days?: No Do you have a sore throat?: No Do you have a cough?: No Do you have any weakness?: No Do you have any diarrhea?: No Are you experiencing any unusual bleeding?: No Do you have any muscle aches/pain?: No Do you have any abdominal pain?: No Are you experiencing loss of taste or smell?: No [facility] Anesthesia Checklist Patient Identification Patient Identification: Arm Band and Verbal (Name & ) Structural Data Admitted From: Home Planned Operative Procedure/s: colonscopy Consent for Planned Operative Procedure(s) Verified: Yes Verified Documents: Surgical Consent and History and Physical NPO Status Verified Time NPO: 00:00 Additional verifications Anesthesia Reactions: No Previous Colonoscopy: No Airway Assessment Mallampati Score:: Class II Dentition: Edentulous Neurological Assessment Level of Consciousness: Awake, Alert and Appropriate Hx Seizures: No Numbness or tingling in extremities: No Anesthesia Plan Anesthesia Risk discussed: Yes Anesthesia Plan: Verified ASA Class: II Anesthesia Type: MAC
[2025-02-07] MEDS: LACTATED RINGERS 1000ML 1,000 ML 50 ML IV (09:43)
[2025-02-07 09:49] VITALS: BP 163/95; PULSE 76; RESP 18; TEMP 36.5; O2SAT 95
[2025-02-07 11:38] VITALS: BP 104/65; PULSE 73; RESP 18; TEMP 36.1; O2SAT 97
[2025-02-07 11:48] VITALS: BP 113/69; PULSE 73; RESP 18; O2SAT 97
[2025-02-07 11:58] VITALS: BP 129/57; PULSE 67; RESP 18; O2SAT 98
[2025-02-07 12:08] VITALS: BP 151/98; PULSE 67; RESP 18; O2SAT 99
== END 2025-02-07 12:30 | disposition home or self-care (01) ==
PROVIDERS: PCP Family Medicine; Visit Provider Internal Medicine Gastroenterology
PROC: 0DJD8ZZ Inspection of Lower Intestinal Tract, Via Natural or Artificial Opening Endoscopic (ICD-10-PCS; CPT 45378; principal; 2025-02-07 11:00)
DX: Z12.11 Encounter for screening for malignant neoplasm of colon (principal); D12.2 Benign neoplasm of ascending colon; D12.4 Benign neoplasm of descending colon; D12.3 Benign neoplasm of transverse colon; D12.5 Benign neoplasm of sigmoid colon; K57.30 Diverticulosis of large intestine without perforation or abscess without bleeding; K64.0 First degree hemorrhoids; F17.200 Nicotine dependence, unspecified, uncomplicated; E03.9 Hypothyroidism, unspecified; I10 Essential (primary) hypertension; Z88.5 Allergy status to narcotic agent
CPT/HCPCS: 45385; J2003; J2704; J7120

== ENCOUNTER 2025-02-18 09:34 | Outpatient (CLI) | payer BC, SELFPAY ==
--- OUTSIDE RECORDS SUMMARY | 2024-12-17 11:15 | XMS_ITS ---
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 Name Role Phone Mary Le Primary Care Provider Sophia Kent Unavailable [phone] Allergies Allergen (clinical drug ingredient) Drug/Non Drug Allergy documented on EMR Reaction Allergy Type Onset Date Status codeine Codeine Unknown Drug Allergy Active REASON FOR VISIT results from test Encounters Encounter Location Date Provider Diagnosis [facility] [address] [place] [id number] 12/17/2024 Sophia Kent Plan Of Treatment No Information Progress Notes * Sivan MONTIELaDOB:1960 (64 yo F)Acc No.[id number]:12/17/2024 Progress Notes Patient: Comfort ALMEIDA Provider: DUDLEY Valdez :1960 A ge:64 Y S ex:Female Date:12/17/2024 Address:[address] [place], [place] [id number] Pcp:Mary Le Subjective: * Chief Complaints: * 1 . Results from test. * HPI: H PI: 64 year old female presents with c/o Patient is here today for?Pt is here today to discuss her test results. * ROS: D ERMATOLOGY: no R anupama. n o H kb. G ASTROENTEROLOGY: no N ausea. n o V omiting. n o D iarrhea.? U ROLOGY: no D ifficulty urinating. n o B lood in urine. * Medical History: H ypertension, Hypothyroidism, Depression, Anxiety, Lung Cancer Stage I - chemo treatments - Dr. Saloni Mckeon - [facility] dx. May 01, 2017, Saw Dr. Jenkins in November 2022. * Surgical History: G allstones 1969, Arm Surgery 1979, Hysterectomy 2006, lymph node biopsy left neck, metastatic squamous cell CA 03/2012, panendoscopy 03/2012, left neck dissection, nodes negative 04/08/2012, Nasal 02/03/2014, Partial Mid RT Lung - cancer - Chemo Treatments , Port Placement 06/30/2017. * Hospitalization/Major Diagno stic Procedure: p neumonia 1993, [facility] - Lung Cancer Removal 06/02-. * Family [...] Type: , Frequency: ,Years: , Determination:. * Allergies: C odeine. Objective: * Vitals: Assessment: Plan: * Treatment: * Images: Billing Information: * Visit Code: * Procedure Codes: * Electronic signature of DUDLEY Aquino on 02/18/2025 at 09:36 AM EDT Sign off status: Pending * Provider: DUDLEY Valdez Date: 0 12/17/2024 Generated for Cassandra dotson/Glendy/eTransmitting on: 1 09:36 AM EDT History and Physical Notes * HPI (History of Present Illness) Category Sub-Category Detail Notes Category Not es HPI Patient is here today for Pt is here today to discuss her test results
--- OUTSIDE RECORDS SUMMARY | 2024-12-28 05:49 | XMS_ITS ---
[facility] Organization [facility] Address [address] [facility] [place] 36 [facility] [address] [place] [id number] Care Team Providers Care Real Estate Leasing Manager Name Role Phone Mary Le Primary Care Provider Sophia Kent Unavailable [phone] Results Component Value Reference Range Notes Ultrasound : Breast, left Reviewed date:02/02/2025 02:26:04 PM Interpretation:US Guided Biopsy Recommended Performing Lab: Notes/Report: US Guided Biopsy Recommended Mammogram : Diagnostic Left Breast Reviewed date:02/02/2025 02:26:04 PM Interpretation:Stable 1.2 mm mass Performing Lab: Notes/Report: Stable 1.2 mm mass REASON FOR VISIT Test Results Problems Problem Type SNOMED Code ICD Code Onset Dates Problem Status W/U Status Risk Notes Problem Tomography - chest abnormal (687094848) Abnormal CT scan, chest (R93.89) Active confirmed Encounters Encounter Location Date Provider Diagnosis [facility] [address] [place] [phone] 12/28/[address] scan, ch est R93.89 Assessments Encounter Date Diagnosis (ICD Code) Assessment Notes Treatment Notes Treatment Clinical Notes Section Notes 12/28/[address] scan, chest (ICD-10 - R93.89) Plan Of Treatment No Information Progress Notes * Mamta MONTIELB:1960 (64 yo F)Acc No.[id number]:12/28/2024 Patient: Comfort ALMEIDA Account Number: :1960 A ge:64 Y S ex:Female Address:[address] [place] [id number] Subjective: * Chief Complaints: * T est Results * Medical History: * Surgical History: * Hospitalization/Major Diagno stic Procedure: * Medications: Objective: * Vitals: * Physical Examination: Assessment: * Assessment: 1. A bnormal CT scan, chest - R93.89 (Primary) Plan: * Treatment: ?Imaging: Mammogram : Diagnostic Left Breast* Lulu Olson 01/04/2025 12:5 9:14 PM EDT >No auth required, order faxed Amanda Weber 02/02/2025 02:25:51 PM EDT > See phone encounterThis DI was reviewed by Amanda Weber on 02/02/2025 at 14:26 PM EDT * Procedure Codes: * true * Date: Generated for Cassandra dotson/Glendy/eTbranden on: 09:37 AM EDT
--- OUTSIDE RECORDS SUMMARY | 2025-01-13 09:45 | XMS_ITS ---
Author Organization Remy Address [address] [facility] [address] [phone] Care Team Providers Care Creative Services Director Name Role Phone Mary Le Primary Care Provider Allergies Allergen (clinical drug ingredient) Drug/Non Drug Allergy documented on EMR Reaction Allergy Type Onset Date Status codeine Codeine Unknown Drug Allergy Active REASON FOR VISIT 4 months, Orders for Diagnostic Mammogram of left breast added but pt has not scheduled, Positive Cologuard 11/29/24 - Colonoscopy referral sent 12/02/24 but not scheduled, Needs labs, Tdap, & shingles vaccine Encounters Encounter Location Date Provider Diagnosis Remy [address] [facility] 36 [facility] [address] [place] [phone] 01/13/2025 Mary Le Plan Of Treatment No Information Progress Notes * Sivan MONTIELaDOB:1960 (64 yo F)Acc No.[id number]:01/13/2025 Progress Notes Patient: Comfort ALMEIDA Provider: Mary Le M.D. :1960 A ge:64 Y S ex:Female Date:01/13/2025 Address:[address] [place] [id number] Subjective: * Chief Complaints: * 1 . 4 months. 2. Orders for Diagnostic Mammogram of left breast added but pt has not scheduled. 3. Positive Cologuard 11/29/24 - Colonoscopy referral sent 12/02/24 but not scheduled. 4. Needs labs, Tdap, & shingles vaccine. * ROS: D ERMATOLOGY: no R anupama. n o H kb. G ASTROENTEROLOGY: no N ausea. n o V omiting. n o D iarrhea.? U ROLOGY: no D ifficulty urinating. n o B lood in urine. * Medical History: H ypertension, Hypothyroidism, Depression, Anxiety, Lung Cancer Stage I - chemo treatments - Dr. Saloni Mckeon - [facility]. May 01, 2017, Saw Dr. Jenkins in November 2022. * Surgical History: G allstones 1969, Arm Surgery 1979, Hysterectomy 2006, lymph node biopsy left neck, metastatic squamous cell CA 03/2012, panendoscopy 03/2012, left neck dissection, nodes negative 04/08/2012, Nasal 02/03/2014, Partial Mid RT Lung - cancer - Chemo Treatments , Port Placement 06/30/2017. * Hospitalization/Major Diagno stic Procedure: p eleni 1993, [facility] - Lung Cancer Removal 06/02-. * [...] * Procedure Codes: * Electronic signature of Mary Le MD on 02/18/2025 at 09:36 AM EDT Sign off status: Pending * Provider: Mary Le M.D. Date: 0 01/13/2025 Generated for Cassandra dotson/Glendy/Girish on: 1 09:36 AM EDT
--- OUTSIDE RECORDS SUMMARY | 2025-01-28 11:30 | XMS_ITS ---
Author Organization [facility] Address [address] [facility] [address] [phone] Care Team Providers Care Buildings And Grounds Superintendent Name Role Phone Mary Le Primary Care Provider Sophia Kent Unavailable [phone] Allergies Allergen (clinical drug ingredient) Drug/Non Drug Allergy documented on EMR Reaction Allergy Type Onset Date Status codeine Codeine Unknown Drug Allergy Active Results Component Value Reference Range Notes P-Vitamin B12 Reviewed date:02/01/2025 03:13:11 PM Interpretation:1317 Performing Lab: Notes/Report: CLIA: [id number] Baldemar De Santiago MD, Taste Tester [address] [place] [address] , [address], [place] [address] Test performed by [facility] Vitamin B12 [phone] pg/mL P-Comprehensive Metabolic Pa azra (CMP) Reviewed date:02/01/2025 03:13:11 PM Interpretation:Cr 1.12, eGFR 55, Alk Phos 126, A/G 2.6 Performing Lab: Notes/Report: Test performed by [facility] [address] [place] [address] , [address], [place] [address] Baldemar De Santiago MD, Taste Tester CLIA: [id number] Sodium 144 135-145 mmol/L Potassium 4.0 3.5-5.3 mmol/L Chloride 104 97-108 mmol/L CO2 27 20-32 mmol/L Glucose 94 65-99 mg/dL BUN 22 8-23 mg/dL Creatinine 1.12 0.50-1.00 mg/dL Calcium 9.8 8.6-10.4 mg/dL eGFR by Creatinine 55 >59 mL/min/1.73m2 Protein 6.4 6.0-8.3 g/dL Albumin 4.6 3.5-5.3 g/dL Alkaline Phosphatase 126 35-121 IU/L ALT (SGPT) 12 <5-47 IU/L AST (SGOT) 18 <5-40 IU/L Bilirubin, Total 0.2 <0.2-1.2 mg/dL A/G Ratio 2.6 1.1-2.5 P-T4 Free (thyroxine) Reviewed date:02/01/2025 03:13:11 PM Interpretation: Normal Performing Lab: Notes/Report: Test performed by [facility] [address] [place] [address] , [place] [address] Baldemar De Santiago MD, Taste Tester CLIA: [id number] Thyroxine Free (free T4) 1.42 0.86-1.76 ng/dL P-Magnesium Reviewed date:02/01/2025 03:13:11 PM Interpretation: Normal Performing Lab: Notes/Report: Test performed by [facility] [address] [place] [address] , [facility] [place] [address] Baldemar De Santiago MD, Taste Tester CLIA: [id number] Magnesium 2.1 1.6-2.4 mg/dL P-TSH Reviewed date:02/01/2025 03:13:11 PM Interpretation:0.14 Performing Lab: Notes/Report: Test performed by [facility] [address] [place] [address] , [place] [address] Baldemar De Santiago MD, Taste Tester CLIA: [id number] TSH 0.14 0.43-5.25 mU/L P-Vitamin D 25-Hydroxy Reviewed date:02/01/2025 03:13:11 PM Interpretation: Normal Performing Lab: Notes/Report: Test performed by [facility] [address] [place] [address] , [place] [address] Baldemar De Santiago MD, Taste Tester CLIA: [id number] Vitamin D 25-Hydroxy 54.6 30.0-100.0 ng/mL Interpretation of Vitamin D 25 OH: < 20 ng/mL - Deficiency 20 - 29 ng/mL - Insufficiency 30 - 100 ng/mL - Sufficiency > 100 ng/mL - Super-therapeutic- toxicity may occur above this level. Clinical correlation required. REASON FOR VISIT check up Medications Medication SIG (Take, Route, Frequency, Duration) Notes Start Date End Date Status busPIRone HCl 15 MG 1 tablet Orally Twic e a day Active Triamcinolone Acetonide 0.1 % 1 application Externally three times a day, prn 10/28/2024 Active Levalbuterol Tartrate 45 MCG/ACT 2 puff as needed Inhalation qid prn 10/29/2023 Active Mupirocin 2 % 1 leobardo applied topica lly in the nose daily 12/20/2021 Active Omeprazole 40 MG 1 capsule 30 minutes before morning meal Orally Once a day Active Levothyroxine Sodium 150 MCG 1 tablet in the morning on an empty stomach Orally Once a day; Duration: 30 days 10/28/2024 Active Linezolid 600 MG 1 tablet Orally ever y 12 hrs; Duration: 10 days 11/10/2024 Not-Taking amLODIPine Besylate-Valsartan 5-160 MG 1 tab(s) orally once a day; Duration: 90 days Active Ciprofloxacin HCl 500 MG 1 tablet Orally every 12 hrs; Duration: 7 days 12/08/2024 Not-Taking Albuterol Sulfate HFA 108 (90 Base) MCG/ACT 1-2 PUFFS Inhalation 4 times a day Active Potassium Chloride ER 10 MEQ 1 tablet with food Orally Twice a day; Duration: 90 days Active Atorvastatin Calcium 10 MG 1 tablet Orally Once a day; Duration: 90 days Active buPROPion HCl ER (XL) 300 MG TAKE 1 TABLET BY MOUTH DAILY; Duration: 90 Active Triamterene-HCTZ 37.5-25 MG TAKE 1 TABLET BY MOUTH EVERY DAY; Duration: 90 Not-Taki ng Problems Problem Type SNOMED Code ICD Code Onset Dates Problem Status W/U Status Risk Notes Problem Vitamin D deficiency (05643491) Vitamin D deficiency (E55.9) Active confirmed Problem Hypomagnesemia (895544283) Hypomagnesemia (E83.42) Active confirmed Vital Signs Weight 113.2 lbs 01/28/2025 Blood pressure systolic 136 mm Hg 01/29/20 25 Blood pressure diastolic 82 mm Hg 025 Heart Rate 88 /min 01/28/2025 Height 60 in 01/28/2025 BMI 22.11 kg/m2 01/28/2025 Encounters Encounter Location Date Provider Diagnosis [facility] [address] [facility] [address] [phone] 01/28/2025 Sophia Donte Acquired hypothyroid ism E03.9 ; Renal insufficiency N28.9 ; Elevated liver enzymes R74.8 ; Vitamin D deficiency E55.9 ; Vitamin B12 deficiency E53.8 ; Hypomagnesemia E83.42 and BMI 22.0-22.9, adult Z68.22 Assessments Encounter Date Diagnosis (ICD Code) Assessment Notes Treatment Notes Treatment Clinical Notes Section Notes 01/28/2025 Acquired hypothyroidism (ICD-10 - E03.9) 01/28/2025 Renal insufficiency (ICD-10 - N28.9) 01/28/2025 Elevated liver enzymes (ICD-10 - R74.8) 01/28/2025 Vitamin D deficiency (ICD-10 - E55.9) 01/28/2025 Vitamin B12 deficiency (ICD-10 - E53.8) 01/28/2025 Hypomagnesemia (ICD-10 - E83.42) 01/28/2025 BMI 22.0-22.9, adult (ICD-10 - Z68.22) Plan Of Treatment Next Appt Details Follow Up: via phone to repo rt test results, Reason: Progress Notes * Mamta MONTIELB:1960 (64 yo F)Acc No.[id number]:01/28/2025 Progress Notes Patient: Comfort ALMEIDA Provider: DUDLEY Valdez :1960 A ge:64 Y S ex:Female Date:01/28/2025 Address:[address] [place], [place] [phone] Pcp:Mary Le Subjective: * Chief Complaints: * 1 . Check up. * HPI: C ardiology: 64 year old female presents with c/o Blood Pressure Elevated?Pt is here today for a check up for hypertension and hyperlipidemia. Pt sts she has been doing well and has no concerns at this time. c/o Hyperlipidemia. H PI: c/o Patient is here today for P t sts she does want to go over some of her medications and would like to discuss some vitamins she has been taking as well.? * ROS: D ERMATOLOGY: no R anupama. n o H kb. G ASTROENTEROLOGY: no N ausea. n o V omiting. n o D iarrhea.? U ROLOGY: no D ifficulty urinating. n o B lood in urine. * Medical History: H ypertension, Hypothyroidism, Depression, Anxiety, Lung Cancer Stage I - chemo treatments - Dr. Saloni Mckeon [facility] dx. May 01, 2017, Saw Dr. Jenkins in November 2022. * Surgical History: G allstones 1969, Arm Surgery 1979, Hysterectomy 2006, lymph node biopsy left neck, metastatic squamous cell CA 03/2012, panendoscopy 03/2012, left neck dissection, nodes negative 04/08/2012, Nasal 02/03/2014, Partial Mid RT Lung - cancer - Chemo Treatments , Port Placement 06/30/2017. * Hospitalization/Major Diagno stic Procedure: andrew knowles 1993, [facility] - Lung Cancer Removal 06/02-. * Family [...] meal Orally Once a day , Taking Levalbuterol Tartrate 45 MCG/ACT Aerosol 2 puff as needed Inhalation qid prn , Taking buPROPion HCl ER (XL) 300 MG Tablet Extended Release 24 Hour TAKE 1 TABLET BY MOUTH DAILY , Taking Potassium Chloride ER 10 MEQ Capsule Extended Release 1 tablet with food Orally Twice a day , Taking Atorvastatin Calcium 10 MG Tablet 1 tablet Orally Once a day , Taking amLODIPine Besylate-Valsartan 5-160 MG Tablet 1 tab(s) orally once a day , Taking Albuterol Sulfate HFA 108 (90 Base) MCG/ACT Aerosol Solution 1-2 PUFFS Inhalation 4 times a day , Not-Taking Triamterene-HCTZ 37.5-25 MG Tablet TAKE 1 TABLET BY MOUTH EVERY DAY , Not-Taking Linezolid 600 MG Tablet 1 tablet Orally every 12 hrs , Not-Taking Ciprofloxacin HCl 500 MG Tablet 1 tablet Orally every 12 hrs , Medication List reviewed and reconciled with the patient * Allergies: C deepak. Objective: * Vitals: W t: 113.2, Temp: 98.6, BP: 136/82, HR: 88, Nurse: connie, Ht: 60, BMI:22.11. * Examination: G eneral Examination: General Appearance: N AD. H EENT: u nremarkable.?Oral cavity: n o lesions, mucosa moist and WNL, no erythema. N jennifer: s upple, no lymphadenopathy. C hest: n ormal shape and expansion. H eart: R SR. L ungs: c lear to auscultation. A bdomen: b owel sounds present, soft and nontender. N eurologic Exam: I ntact, gait normal. S kin: n ormal, no rash. P eripheral pulses: n ormal (2+) bilaterally. E xtremities: n o leg edema. Assessment: * Assessment: 1. A cquired hypothyroidism - E03.9 (Primary) 2 . R enal insufficiency - N28.9 3 . E levated liver enzymes - R74.8 4 . V itamin D deficiency - E55.9 5 . V itamin B12 deficiency - E53.8 6 . H ypomagnesemia - E83.[address] 22.0-22.9, adult - Z68.22 Plan: * Treatment: Value Reference Range T hyroxine Free (free T4) 1.42 0.86-1.76 - ng/d L * Tia, Amanda 02/01/2025 03: 13:03 PM EDT > See phone encounter ?LAB: P-TSH (Collection Date & Time - 01/28/2025 02:55 PM)?0.14* Value Reference Range T SH 0.14 L 0.43-5.25 - mU/L * Amanda Weber 02/01/2025 03: 13:03 PM EDT > See phone encounter 2.?Renal insufficiency?LAB: P-Comprehensive Metabolic Panel (CMP) (Collection Date & Time - 01/28/2025 02:55 PM)?Cr 1.12, eGFR 55, Alk Phos 126, A/G 2.6* Value Reference Range A /G Ratio 2.6 H 1.1-2.5 - * A lbumin 4.6 3.5-5.3 - g/dL * A lkaline Phosphatase 126 H 35-121 - IU/L * A LT (SGPT) 12 <5-47 - IU/L * A ST (SGOT) 18 <5-40 - IU/L * B ilirubin, Total 0.2 <0.2-1.2 - mg/dL * B UN 22 8-23 - mg/dL * C alcium 9.8 8.6-10.4 - mg/dL * C hloride 104 97-108 - mmol/L * C O2 27 20-32 - mmol/L * C reatinine 1.12 H 0.50-1.00 - mg/dL * G lucose 94 65-99 - mg/dL * P otassium 4.0 3.5-5.3 - mmol/L * S odium 144 135-145 - mmol/L * P rotein 6.4 6.0-8.3 - g/dL * e GFR by Creatinine 55 L >59 - mL/min/1.73m2 * Amanda Weber 02/01/2025 03: 13:03 PM EDT > See phone encounter 3.?Vitamin D deficiency?LAB: P-Vitamin D 25-Hydroxy (Collection Date & Time - 01/28/2025 02:55 PM)? Normal* Value Reference Range V itamin D 25-Hydroxy 54.6 30.0-100.0 - ng/mL * Amanda Weber 02/01/2025 03: 13:03 PM EDT > See phone encounter 4.?Vitamin B12 deficiency?LAB: P-Vitamin B12 (Collection Date & Time - 01/28/2025 02:55 PM)?1317* Value Reference Range V itamin B12 1317 H 232-1245 - pg/mL * Amanda Weber 02/01/2025 03: 13:03 PM EDT > See phone encounter 5.?Hypomagnesemia?LAB: P-Magnesium (Collection Date & Time - 01/28/2025 02:55 PM)?Normal* Value Reference Range M agnesium 2.1 1.6-2.4 - mg/dL * Amanda Weber 02/01/2025 03: 13:03 PM EDT > See phone encounter * Procedure Codes: 3 075F SYST BP GE 130 - 139MM HG, 3079F DIAST BP 80-89 MM HG * Follow Up: v ia phone to report test results * Images: Billing Information: * Visit Code: 41819 Office Visit, Est Pt., Level 4. * Procedure Codes: 3075F SYST BP GE 130 - 139MM HG. 3079F DIAST BP 80-89 MM HG. * Electronic signature of DUDLEY Aquino on 02/18/2025 at 09:36 AM EDT Sign off status: Pending * Provider: DUDLEY Vladez Date: 0 01/28/2025 Generated for Printi ng/Faxing/eTransmitting on: 1 09:36 AM EDT History and Physical Notes * HPI (History of Present Illness) Category Sub-Category Detail Notes Category Not es Cardiology Blood Pressure Elevated Pt is he re today for a check up for hypertension and hyperlipidemia. Pt sts she has been doing well and has no concerns at this time Hyperlipidemia HPI Patient is here today for Pt sts she does want to go over some of her medications and would like to discuss some vitamins she has been taking as well Examination Category Sub-Category Detail Notes Category Not es General Examination HEENT: unremarkable Heart: RSR Lungs: clear to auscultatio n Abdomen: bowel sounds present , soft and nontender Extremities: no leg edema General Appearance: NAD Skin: normal, no rash Neurologic Exam: Intact, gait normal Neck: supple, no lymphaden opathy Oral cavity: no lesions, mucosa m oist and WNL, no erythema Peripheral pulses: normal (2+) bilatera lly Chest: normal shape and exp ansion
--- OUTSIDE RECORDS SUMMARY | 2025-02-18 09:36 | XMS_ITS | Clinical Summary ---
Author Organization [employer] ([place], [place], [place], [place]) Address [address] [place] [address] Care Team Providers Care Second Baller Name Role Phone Unavailable Primary Care Provider Unavailabl e Allergies Active Allergy Reactions Criticality Noted Date Comments Codeine Other (See Comments) 11/28/2022 Medications triamterene-hyd roCHLOROthiazid e (MAXZIDE-25) 37.5-25 mg per tablet Take 0.5 tablets by mouth daily. 09/18/2022 Active potassium chloride (MICRO-K) 10 mEq CR capsule Take 1 capsule (10 mEq total) by mouth 2 (two) times daily. 10/14/2022 Active levothyroxine (SYNTHROID, LEVOTHROID) 100 MCG tablet Take 1 tablet (100 mcg total) by mouth daily. 11/12/2022 Active diazePAM (VALIUM) 5 MG tablet Take 1 tablet (5 mg total) by mouth 3 (three) times daily as needed. 11/18/2022 Active buPROPion (WELLBUTRIN XL) 300 MG 24 hr tablet Take 1 tablet (300 mg total) by mouth daily. 09/16/2022 Active atorvastatin (LIPITOR) 10 MG tablet Take 1 tablet (10 mg total) by mouth daily. 09/12/2022 Active amlodipine-vals saurabh (EXFORGE) 5-160 mg per tablet Take 1 tablet by mouth daily. 10/14/2022 Active albuterol HFA (VENTOLIN HFA) 90 mcg/actuation inhaler 1-2 puffs 4 (four) times daily as needed. 02/21/2023 Active Active Problems Problem Noted Date Diagnosed Date Allergic rhinitis 11/28/2022 Anxiety 11/28/2022 At risk for sleep apnea 11/28/2022 Bronchitis 11/28/2022 Depression 11/28/2022 Encounter for general adult medical examination without abnormal findings 11/28/2022 High blood pressure 11/28/2022 Injury of foot 11/28/2022 Pneumonia 11/28/2022 Squamous cell carcinoma of nasopharynx Thyroid disease 11/28/2022 Cancer of right lung 11/28/2022 Malignant neoplasm of lateral wall of nasopharyn x 06/28/2022 Malignant neoplasm of middle lobe, bronchus or l angie 06/28/2022 Encounters Date Type Department Care Team Description 02/17/2025 Patient Outreach [facility] [address] [place] [address] Case, Olga Bess RN 02/15/2025 Orders Only [facility] [address] [place] [address] Provider, MD Marian 02/14/2025 Telephone [facility] [address] [place] [address] Saloni Pinto MD Breast Mass; Lung Mass from Last 3 Months Immunizations Immunization Administration Dates Next Due Hepatitis B 03/06/2000,10/01/1999,08/27/1999 Influenza Four-qiv Pf 04/16/2022 Influenza Quad-qiv Non Pf 05/10/2019,02/16/2018 Pneumococcal Conjugate Vacci ne (20-Valent) IM 04/16/2022 Social History Tobacco Use Types Packs/Day Years Used Date Smoking Tobacco: Former Cigarettes Smokeless Tobacco: Never Tobacco Cessation:Counseling Given: Not Answered Alcohol Use Standard Drinks/Week Comments Not Currently 0 (1 standard drink = 0.6 oz pur e alcohol) Employment Answer Date Recorded Help finding and keeping a job Not on file 0 05/30/2023 Family and Community Support Answer Zaheer e Recorded Help with Day to Day Activities Not on file 05/30/2023 Feeling Lonely or Isolated Not on file 05/30 Educational Attainment Answer Date Chidi rded Speak language other than Djiboutian at home Not on file 05/30/2023 Want help with school or training Not on file 05/30/2023 Substance Use Answer Date Recorded Used prescription meds for non-medical reasons N ot on file 05/30/2023 Used illegal drugs past 12 months Not on file 05/30/2023 Comments No Sex and Gender Information Value Date Recorded Sex Assigned at Not on file Legal Sex Female 3:39 PM CDT Gender Identity Not on file Sexual Orientation Not on file Last Filed Vital Signs Vital Sign Reading Time Taken Comments Blood Pressure 135/83 09/08/2024 1:58 PM EDT Pulse 64 09/08/2024 1:58 PM EDT Temperature 36.4 C (97.5 F) 09/08/2024 1:58 PM EDT Respiratory Rate 18 09/08/2024 1:58 PM EDT Oxygen Saturation 98% 09/08/2024 1:58 PM EDT Inhaled Oxygen Concentration - - Weight 50.7 kg (111 lb 12.8 oz) 09/08/2024 1:58 PM EDT Height - - Body Mass Index - - Plan of Treatment Upcoming Encounters Date Type Department Care Team (Late st Contact Info) Description 02/24/2025 9:30 AM EDT Office Visit [facility] [address] [place] [address] Saloni Pinto MD [address] [place] [address] 09/15/2025 2:00 PM EDT Office Visit [facility] [address] [place] [address] Saloni Pinto MD [address] [place] [address] Health Maintenance Due Date Last Done Comments CT Colonography 1962 FOBT/FIT 1962 Fit-DNA (Cologuard) 1962 Sigmoidoscopy 1960 HIV Screening 1977 Hepatitis C Screening 1980 DTAP/TDAP/TD VACCINES (1 - Tdap) 1981 Pap Smear 1983 Lipid Panel 2007 Shingles Vaccine (Zoster) (1 of 2) 2012 Respiratory Syncytial Virus (RSV) Adult or (1 - Risk 60-74 years 1-dose series) 2022 Tobacco Cessation Counseling and Screening (12+) 03/05/2024 03/05/2023 COVID-19 VACCINE ( season) 01/10/202503/2021, 11/29/2020 Influenza Vaccine (#1) 2025 Breast Cancer Screening 02/15/2027 02/15/2025 Colonoscopy 02/15/2035 02/15/2025 Colorectal Cancer Screening 02/15/2035 Pneumococcal 50+ years Completed 04/16/2022 Procedures Procedure Name Priority Date/Time Associated Diagnosis Comments COLONOSCOPY Routine 02/15/2025 1:08 PM EDT EXTERNAL IMAGING - US Routine 02/15/2025 1:05 PM EDT HM MAMMOGRAPHY Routine 02/15/2025 1:03 PM EDT EXTERNAL IMAGING - CT Routine 02/15/2025 12:26 PM EDT from Last 3 Months Results * COLONOSCOPY (02/15/2025 1:08 PM EDT) Historical Provider HEALTH MAINTENANCE Final Result * EXTERNAL IMAGING - US (02/15/2025 1:05 PM EDT) Anatomical Region Laterality Modality Other [facility] Provider HEALTH MAINTENANCE Final Result * MAMMOGRAPHY (02/15/2025 1:03 PM EDT) Anatomical Region Laterality Modality Other Historical Provider HEALTH MAINTENANCE Final Result * EXTERNAL IMAGING - CT (02/15/2025 12:26 PM EDT) Anatomical Region Laterality Modality Other [facility] Provider HEALTH MAINTENANCE Final Result from Last 3 Months Insurance BLUE CROSS/BLUE SHIELD
--- OUTSIDE RECORDS SUMMARY | 2025-02-18 09:36 | XMS_ITS | Encounter Summary ---
Author Organization [employer] ([place], [place], [place], [place]) Address [address] [place] [address] Care Team Providers Care Director Advertising Name Role Phone Unavailable Primary Care Provider Unavailabl e Encounter Details Date Type Department Care Team (Late st Contact Info) Description 09/18/2018 Transcribed Document [facility] Family Medicine [facility] [place] [address] ProviderMarian MD [facility] [place] [address] Social History Tobacco Use Types Packs/Day Years Used Date Smoking Tobacco: Never Assessed Comments Unknown Sex and Gender Information Value Date Recorded Sex Assigned at Not on file Legal Sex Female 3:39 PM CDT Gender Identity Not on file Sexual Orientation Not on file documented as of this encounter Miscellaneous Notes * [employer] Conversion Note - Marian Estrada MD - 09/18/2018 1:23 PM CDT [facility] Follow up note RE: JULIANA JEFFREY : 1960 Date of Service: 04/30/2018 Referring Physician: Dr. Danni Guardado Reason for Referral: Nasopharyngeal carcinoma, new diagnosis lung cancer. 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 Kostas Guo showing squamous cell carcinoma. 4) S/p resection of a small area felt to be the primary in the left nasopharynx on 03/23/12 and s/p left neck dissection on 04/08/12; all nodes and neck dissection were negative for metastatic disease. 5) S/p concurrent chemoradiation with cisplatin and XRT from 06/24 through 08/22. 6) New lung nodule. CT guided FNA R lung mass 05/20/17?positive for malignant cells. Combined small cell carcinoma. 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 Marked positivity for TTF-1. 7) Right middle lobectomy and mediastinal lymph node dissection on 06/02/2017. Pathology revealed poorly differentiated, large cell neuroendrocrine carcinoma (1.2 x 1.1 x 1 cm) (should be TIb between 1-2 cm). )Resection margins negative for malignancy. Peribronchial lymph node, negative for malignancy. Submitted subcarinal lymph node, negative. Hilar lymph node, negative. Azygous caval lymph node, negative. Total for 8 lymph nodes negative for malignancy. Chromogranin, positive. TTF-1, positive. Ki67, high proliferative index (>90%). Most consistent with a poorly differentiated, large cell neuroendocrine carcinoma. Histologic grade, poorly differentiated. Visceral pleural invasion through elastic, not identified. No definite LV invasion. 8) Completed 4 cycles Cisplatin/etoposide for adjuvant chemo for lung cancer starting 06/29-09/26. HPI: Ms. Montiel returns for follow-up for nasopharyngeal carcinoma and primary mixed large cell/small cell neuroendocrine carcinoma. She reports a variety of new complaints. She reports neck pain that has been ongoing for the last month. She has been having off and on headaches independent of neck pain. Has tried Tylenol, Lortab, and Ibuprofen without relief. She reports no decrease in appetite but has bloating and severe constipation that has been worsening since her last appointment. She also reports bilateral pleural pain with deep breaths that wraps around to her back. Full ADLS. ECOG PS 1. Problem List: Adjustment disorder with anxiety Mild protein-calorie malnutrition Headache Chronic kidney disease, unspecified Antineoplastic and immuNOSuppresive drugs Solitary pulmonary nodule Dizziness and giddiness Dyspnea Essential (primary) hypertension Hypothyroidism, unspecified Nicotine dependence, unspecified, uncomplicated Past Medical History: 9) Nasopharyngeal carcinoma as above 10) Hypertension 11) Hypothyroidism (predated nasopharyngeal ca diagnosis and XRT) 12) Ongoing tobacco use 13) Postmenopausal Past Surgical History: 14) Resection of L nasopharyngeal primary, 2.5cm level 2 lymph node, and L neck dissection all per Dr. Guo March 2012 as per HPI 15) Total hysterectomy and BSO 16) Cholecystectomy 17) L elbow surgery Allergies: Codeine Phosphate (Bulk) Medication List: multivitamin 1 Capsule Oral Daily bupropion HCl 1 Tablet Oral twice a day 10/08/2016 Synthroid (levothyroxine) [levothyroxine (Synthroid)] 1 Tablet Oral Daily valsartan 1 Tablet Oral Daily amlodipine 1 Tablet Oral Daily B Complex (B complex vitamins) [B complex vitamins (B Complex)] 1 Capsule Oral Daily lorazepam 1 Tablet Oral Every day before sleep PRN Social History: Lives in [place], [place]. Single. 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 15-30 pack yr smoking history. Quit smoking 05/2017. No alcohol or illicit drug use. Family History: Father living age 73, had lung ca tx with surgery but doing well. Several family members with DM2. Father has CAD. Sister has COPD. Pt has two sons, both healthy. Mother living age 73, healthy. No other cancer history in the family. Review of Systems: 14 systems reviewed and negative except as per HPI. Vital Signs: Vital Signs & Weight; Pulse - 72 (09/18/2018 2:46 PM); B/P - 135/79 (09/18/2018 2:46 PM); Pulse Ox - 100% RA (09/18/2018 2:46 PM); Weight (lb) (lb) - 116.95 (09/18/2018 2:46 PM); BSA(D) (m*2) - 1.52 (09/18/2018 2:46 PM) Physical Examination: Gen?NAD, alert and oriented x3. Eyes?PERRL, EOMI, no scleral icterus. ENT--oropharynx clear without lesion or exudate, moist mucosal membranes. No sinus tenderness. Neck-- supple without adenopathy well-healed surgical incision left neck Cardiovascular-- regular rate and rhythm without murmurs rubs or gallops Lungs-- clear to auscultation bilaterally without wheezes rales or rhonchi. Right thoracotomy incision well-healed. No evidence of infection. No erythema or fluctuance. Abdomen-- soft nontender, +distended, positive bowel sounds Extremities-- no cyanosis clubbing or edema 2+ distal pulses throughout. Skin?No rashes or jaundice. Heme?No petechiae or ecchymoses. Neuro? Normal speech and gait. Strength and sensation grossly intact upper and lower extremities. Psych? normal mood and affect Laboratory: Date 12/08/2017 Time 12:00 AM Chemistry Creatinine (mg/dL) 1.15 CrCl (C&G) (ml/min) 46.77 Creatinine Clearance (ml/min) 54.8 Date Time Labs on 05/29/2017: FEV1 2.21 BEST 2.00 %PRED 91 Radiology: PET scan on 05/21/12 with some thickened areas of hypermetabolic activity in the posterior nasopharynx with an SUV of 14 and a more inferior area of increased uptake along the right tonsillar pillar with an SUV of 7.3. PET scan on 09/28/12, six weeks after completion of concurrent chemoradiation, showed noevidence of persistent, recurrent, or metastatic disease. PET scan 01/05/13 with no evidence of recurrent or metastatic disease. CT head/face/neck/chest with iv contrast 11/29/14?no evidence of distant metastatic disease CT head with and without contrast 05/01/17?unremarkable. CT face with contrast 05/01/17?mild sinusitis. No mass or adenopathy. CT neck and chest with contrast 05/01/17?new 10mm RML nodule. Suspicious for malignancy. Metastatic disease vs. lung primary. Amenable to CT guided biopsy but PET scan recommended first. CT neck unremarkable. No evidence of metastatic adenopathy. PET scan May 09, 2017. New right middle lobe hypermetabolic pulmonary nodule may represent solitary metastatic lesion or primary lung neoplasm. Measures 1.5 cm with SUV 4.7. No other hypermetabolic uptake. MRI of brain on 05/29/07. Chronic pansinusitis. No abnormal enhancement. CR chest on 06/17/2017. Stable exam. Bone scan whole body 10/20/17?abnormal uptake R foot. Differential diagnosis includes osteomyelitis vs. acute fracture. Xray of R foot showed possible healing fracture distal cuboid. CT recommended. PET scan 10/21/17?postoperative changes R posterior chest wall associated with hypermetabolism and pleural nodularity. Favored to be postoperative. Pleural metastasis felt to be less likely. Chest CT follow up recommended. Previously seen hypermetabolic RML nodule has been resected. CT neck and chest with contrast 12/08/17. Mild chronic sinusitis. Persistent asymmetry in the right oropharynx without mass identified. No adenopathy. Stable presumed postop changes of posterior right chest wall at rib #7. No adenopathy or pulmonary nodule. 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 She completed concurrent chemoradiation from 06/22/12 through 08/11/12. 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 s/p RML lobectomy 06/02/17. Poorly differentiated. High Ki67. Adjuvant chemotherapy with cisplatin and etoposide for 4 cycles (see doses above) given small cell lung cancer involvement. Completed adjuvant chemotherapy 09/23/17. Hypothyroidism. She is s/p XRT. She is on levothyroxine. Managed by primary care. CT chest with contrast 04/30/18. No evidence of recurrence. She has new symptoms of neck pain. No adenopathy on exam. Prescription for cyclobenzaprine ordered. She is having new onset pleural pain and change in bowel patterns. Will get CT scans to evaluate symptoms and have her follow-up with MD. In the meantime, please do not hesitate to call if there are any further questions or concerns. CC:cc: TEO, DANNI GUO, Leonidas Bedoya [facility] MD Saloni Machado MD [facility], [address], [place] [address] 1 Electronically signed by [facility], [facility] Conversion Compensation Administrator Cerner at 08/25/2022 7:17 PM CDT documented in this encounter Plan of Treatment Upcoming Encounters Date Type Department Care Team (Late st Contact Info) Description 02/24/2025 9:30 AM EDT Office Visit [facility] [address] [place] [address] Saloni Pinto MD [address] [place] [address] [address] [place] [address] 09/15/2025 2:00 PM EDT Office Visit [facility] [address] [place] [address] Saloni Pinto MD [address] [place] [address] [address] [place] [address] documented as of this encounter Visit Diagnoses Not on filedocumented in this encounter
--- OUTSIDE RECORDS SUMMARY | 2025-02-18 09:36 | XMS_ITS | Encounter Summary ---
Author Organization [employer] ([place], [place], [place], [place]) Address [address] [place] [address] Care Team Providers Care Institution Librarian Name Role Phone Unavailable Primary Care Provider Unavailabl e Reason for Visit * Reason Onset Date Comments Breast Mass 02/14/2025 Lung Mass 02/14/2025 Encounter Details Date Type Department Care Team (Late st Contact Info) Description 02/14/2025 Telephone [facility] [address] [facility] [address] [place] [address] Saloni Pinto MD [address] [facility] [address] [place] [address] Breast Mass; Lung Mass Social History Tobacco Use Types Packs/Day Years Used Date Smoking Tobacco: Former Cigarettes Smokeless Tobacco: Never Alcohol Use Standard Drinks/Week Comments Not Currently [...] Date Chidi rded Speak language other than Ghanaian at home Not on file 05/30/2023 Want [...] as of this encounter Miscellaneous Notes * Telephone Encounter - Lazarus Riggins RN - 02/17/2025 1:03 PM EDT Called pt to let her know what Dr. Pinto had to say about the scans and upcoming biopsy. She is scheduled with [facility] next 02/24 at 9:30, will also need to relay appt date and time. LVM requesting return call. * Telephone Encounter - Lazarus Riggins RN - 02/17/2025 12:45 PM EDT Called and spoke with someone in radiology, she is going to let the tech know to push all images from past year that pt has had into PACS. * Telephone Encounter - Lazarus Riggins RN - 02/16/2025 4:14 PM EDT Called [facility] radiology to have images pushed to PACS no answer, will try again tomorrow. * Telephone Encounter - Lazarus Riggins RN - 02/16/2025 3:16 PM EDT Requested pathology report from [facility], will also get images pushed into PACS. Mird Deja to schedule appt for next week. * Telephone Encounter - Saloni Pinto MD - 02/16/2025 12:54 PM EDT See me next week to review results from the breast biopsy and colonoscopy. You should be able to get the colonoscopy path now. Please call [facility] where she had it done. It may all be benign, but I agree. I would like to see all the results. Please request those outside images from past year get uploaded into PACS. * Telephone Encounter - Lazarus Riggins RN - 02/16/2025 9:13 AM EDT Marina received the imaging reports by fax and routed, please review previous message below and advise. * Telephone Encounter - Lazarus Riggins RN - 02/14/2025 3:56 PM EDT Pt called stating that she recently had CT scan, mammogram and US, and a colonoscopy. The CT scan revealed a nodule in her left lower lobe. Mammogram and US revealed nodule in left breast that she ishaving a biopsy on this Friday. She has not received her colonoscopy results however she had 21 polyps removed so she is nervous about this as well. She would like [facility] to review these records. Most concerned at this time over the CT scan which it was determined to watch and wait regarding the nodule found in her lung. Since this has popped up since her imaging with us on August she worried that this is fast growing and does not want to wait around. I have requested the reports from [facility] and theyare sending now. Will need to route to [facility] for review and recommendations. documented in this encounter Plan of Treatment Upcoming Encounters Date Type Department Care Team (Late st Contact Info) Description 02/24/2025 9:30 AM EDT Office Visit [facility] [address] [place] [phone] Saloni Pinto MD [address] [place] [address] 09/15/2025 2:00 PM EDT Office Visit [facility] [address] [place] [address] Saloni Pinto MD [address] [facility] [address] [place] [address] documented as of this encounter Visit Diagnoses Not on filedocumented in this encounter
--- OUTSIDE RECORDS SUMMARY | 2025-02-18 09:36 | XMS_ITS | Encounter Summary ---
Author Organization [employer] ([place], [place], [place], [place]) Address [address] [place] [address] Care Team Providers Care Airline Operations Agent Name Role Phone Unavailable Primary Care Provider Unavailabl e Encounter Details Date Type Department Care Team (Late st Contact Info) Description 02/15/2025 Orders Only [facility] [address] [place] [address] Provider, MD Marian [address] [place], [place] [id number] Social History Tobacco Use Types Packs/Day Years [...] Date Chidi rded Speak language other than Nigerian at home Not on file 05/30/2023 Want [...] on file documented as of this encounter Plan of Treatment Upcoming Encounters Date Type Department Care Team (Late st Contact Info) Description 02/24/2025 9:30 AM EDT Office Visit [facility] [address] [place] [phone] Saloni Pinto MD [address] [place] [address] 09/15/2025 2:00 PM EDT Office Visit [facility] [address] [place] [address] Saloni Pinto MD [address] [place] [address] documented as of this encounter Procedures Procedure Name Priority Date/Time Associated Diagnosis Comments HM COLONOSCOPY Routine 02/15/2025 1:08 PM EDT EXTERNAL IMAGING - US Routine 02/15/2025 1:05 PM EDT HM MAMMOGRAPHY Routine 02/15/2025 1:03 PM EDT EXTERNAL IMAGING - CT Routine 02/15/2025 12:26 PM EDT documented in this encounter Results * HM COLONOSCOPY (02/15/2025 1:08 PM EDT) Historical Provider HEALTH MAINTENANCE Final Result * EXTERNAL IMAGING - US (02/15/2025 1:05 PM EDT) Anatomical Region Laterality Modality Other Result [facility] Provider HEALTH MAINTENANCE Final Result * HM MAMMOGRAPHY (02/15/2025 1:03 PM EDT) Anatomical Region Laterality Modality Other Historical Provider HEALTH MAINTENANCE Final Result * EXTERNAL IMAGING - CT (02/15/2025 12:26 PM EDT) Anatomical Region Laterality Modality Other Historical Provider HEALTH MAINTENANCE Final Result documented in this encounter Visit Diagnoses Not on filedocumented in this encounter
--- OUTSIDE RECORDS SUMMARY | 2025-02-18 09:36 | XMS_ITS | Referral Summary ---
Author Organization [employer] ([place], [place], [place], [place]) Address [address] [place] [address] Care Team Providers Care Collection Administrator Name Role Phone Unavailable Primary Care Provider Unavailabl e Encounters Date Type Department Care Team Description 02/17/2025 Patient Outreach [facility] [address] [place] [address] CaseOlga RN 02/15/2025 Orders Only [facility] [address] [place] [address] Provider, MD Marian 02/14/2025 Telephone [facility] [address] [place] [address] Saloni Pinto MD Breast Mass; Lung Mass from Last 3 Months Allergies Active Allergy Reactions Criticality Noted Date [...] middle lobe, bronchus or l angie 06/28/2022 Immunizations Immunization Administration Dates Next Due Hepatitis [...] Date Chidi rded Speak language other than Bolivian at home Not on file 05/30/2023 Want [...] Description 02/24/2025 9:30 AM EDT Office Visit [facility] [address] [place] [phone] Saloni Pinto MD [address] [place] [address] 09/15/2025 2:00 PM EDT Office Visit [facility] [address] [place] [address] Saloni Pinto MD [address] [place] [place] [address] Procedures Procedure Name Priority Date/Time Associated Diagnosis Comments HM COLONOSCOPY Routine 02/15/2025 1:08 PM EDT EXTERNAL IMAGING - US Routine 02/15/2025 1:05 PM EDT HM MAMMOGRAPHY Routine 02/15/2025 1:03 PM EDT EXTERNAL IMAGING - CT Routine 02/15/2025 12:26 PM EDT from Last 3 Months Results * HM COLONOSCOPY (02/15/2025 1:08 PM EDT) Historical Provider HEALTH MAINTENANCE Final Result * EXTERNAL IMAGING - US (02/15/2025 1:05 PM EDT) Anatomical Region Laterality Modality Other Historical Provider HEALTH MAINTENANCE Final Result * HM MAMMOGRAPHY (02/15/2025 1:03 PM EDT) Anatomical Region Laterality Modality Other Historical Provider HEALTH MAINTENANCE Final Result * EXTERNAL IMAGING - CT (02/15/2025 12:26 PM EDT) Anatomical Region Laterality Modality Other Historical Provider HEALTH MAINTENANCE Final Result from Last 3 Months Insurance BLUE CROSS/BLUE SHIELD
--- OUTSIDE RECORDS SUMMARY | 2025-02-18 09:37 | XMS_ITS | Encounter Summary ---
Author Organization [employer] ([place], [place], [place], [place]) Address [address] [place] [address] Care Team Providers Care Entertainment Centre Manager Name Role Phone Unavailable Primary Care Provider Unavailabl e Encounter Details Date Type Department Care Team (Late Contact Info) Description 02/17/2025 Patient Outreach [facility] [address] [place] [address] Olga Henson RN Social History Tobacco Use Types Packs/Day Years [...] Date Chidi rded Speak language other than Croatian at home Not on file 05/30/2023 Want [...] Description 02/24/2025 9:30 AM EDT Office Visit [facility] [address] [place] [phone] Saloni Pinto MD [address] [facility] [address] [place] [address] 09/15/2025 2:00 PM EDT [facility] [address] [place] [address] Saloni Pinto MD [address] [place] [address] documented as of this encounter Visit Diagnoses Not on filedocumented in this encounter
--- NOTE | 2025-02-18 09:38 | US_ITS ---
FINAL REPORT CLINICAL HISTORY: .MAMMOTOME LT BREAST 300 FINDINGS: ULTRASOUND-GUIDED LEFT BREAST CORE BIOPSY TECHNIQUE: Limited images were obtained to localize region of interest. The left was prepped in a routine sterile fashion and locally anesthetized with 1% lidocaine. Standard written informed consent was obtained. An oval 5 mm hypoechoic lesion was again identified at approximately 3:00. An 11-gauge vacuum assisted hand-held device was utilized. The needle was positioned posterior to the lesion. Multiple vacuum assisted core samples were obtained. The lesion was noted to be significantly smaller following biopsy. A biopsy marker clip was deployed in satisfactory position. Postbiopsy mammogram showed postbiopsy changes with clip in satisfactory position. Procedure was well tolerated . CONCLUSION: 1. Technically successful ultrasound guided core vacuum assisted biopsy of left breast lesion as above. 2. Biopsy marker clip deployed Authenticated and ERN
--- NOTE | 2025-02-18 09:38 | MM_ITS ---
FINAL REPORT CLINICAL HISTORY: s/p biopsy clip placement FINDINGS: MAMMOGRAM RIGHT 2D TECHNIQUE: Standard digital 2D views COMPARISON: 01/03/2025 DENSITY: There are scattered areas of fibroglandular density FINDINGS: Post biopsy marker clip is noted in satisfactory position. Postbiopsy changes are noted. IMPRESSION: Biopsy marker clip in good position ASSESSMENT: Post procedure mammogram for marker placement RECOMMENDATION: Pending histopathology evaluation Authenticated and ERN
--- OUTSIDE RECORDS SUMMARY | 2025-02-18 09:38 | XMS_ITS | Patient Health Record ---
Author Organization [facility] Address [address] [facility] [address] [place] [id number] Care Team Providers Care Architectural Design Lecturer Name Role Phone Mary Le Primary Care Provider Gely Santana Unavailable [phone] Sophia Kent Unavailable [phone] Allergies Allergen (clinical drug ingredient) Drug/Non Drug Allergy documented on EMR Reaction Allergy Type Onset Date Status codeine Codeine Unknown Drug Allergy Active Results Component Value Reference Range Notes CBC Fingerstick (in house) Reviewed date:10/28/2024 02:44:09 [...] Positive Cologuard positive TEN-Vaginal Infection panel Reviewed date:11/10/2024 01:59:06 PM Interpretation:see TE and duplicate order Performing Lab: Notes/Report: see TE and duplicate order P-Vitamin B12 Reviewed date:02/01/2025 03:13:11 PM Interpretation:1317 Performing Lab: Notes/Report: Test performed by [facility] [address] [place] [address] , [address], [place] [address] Baldemar De Santiago MD, Home Performance Laborer CLIA: [id number] Vitamin B12 8280 999-6440 pg/mL P-Comprehensive Metabolic Pa azra (CMP) Reviewed date:02/01/2025 03:13:11 PM Interpretation:Cr 1.12, eGFR 55, Alk Phos 126, A/G 2.6 Performing Lab: Notes/Report: Test performed by [facility] [address] [place] [address] , [address], [place] [address] Baldemar De Santiago MD, Home Performance Laborer CLIA: [id number] Sodium 144 135-145 mmol/L Potassium 4.0 3.5-5.3 [...] Normal Performing Lab: Notes/Report: Test performed by [facility] [address] [place] [address] , [address], [place] [address] Baldemar De Santiago MD, Home Performance Laborer CLIA: [id number] Thyroxine Free (free T4) 1.42 0.86-1.76 ng/dL P-Magnesium Reviewed date:02/01/2025 03:13:11 PM Interpretation: Normal Performing Lab: Notes/Report: Test performed by [facility] [address] [place] [address] , [address], [place] [address] Baldemar De Santiago MD, Home Performance Laborer CLIA: [id number] Magnesium 2.1 1.6-2.4 mg/dL P-TSH Reviewed date:02/01/2025 03:13:11 PM Interpretation:0.14 Performing Lab: Notes/Report: Test performed by [facility] [address] [place] [address] , [address], [place] [address] Baldemar De Santiago MD, Home Performance Laborer CLIA: [id number] TSH 0.14 0.43-5.25 mU/L P-Vitamin D 25-Hydroxy Reviewed date:02/01/2025 03:13:11 PM Interpretation: Normal Performing Lab: Notes/Report: Test performed by [facility] [address] [place] [address] , [address], [place] [address] Baldemar De Santiago MD, Home Performance Laborer CLIA: [id number] Vitamin D 25-Hydroxy 54.6 30.0-100.0 ng/mL Interpretation of Vitamin D 25 OH: < 20 ng/mL - Deficiency 20 - 29 ng/mL - Insufficiency 30 - 100 ng/mL - Sufficiency > 100 ng/mL - Super-therapeutic- toxicity may occur above this level. Clinical correlation required. P-TSH Reviewed date:11/05/2024 01:35:26 PM Interpretation:Normal Performing Lab: Notes/Report: CLIA: [id number] Baldemar De Santiago MD, Home Performance Laborer [address] [place] [address] , [place] [address] Test performed by [facility] TSH 0.77 0.43-5.25 mU/L CBC Fingerstick (in house) Reviewed date:11/19/2024 08:51:54 [...] - 38 plat 252 100 - 400 Rapid Strep- Inhouse Reviewed date:11/19/2024 08:51:46 AM Interpretation:neg Performing Lab: Notes/Report: neg strep test neg TEN-Vaginal Infection panel Reviewed date:11/09/2024 09:56:50 AM Interpretation: Performing Lab: Notes/Report: CBC Venipuncture (in house) Reviewed date:03/18/2024 04:40:45 [...] Interpretation: Performing Lab: Notes/Report: Test performed by [facility] [address] [place] [address] , [address], [place] [address] Baldemar De Santiago MD, Home Performance Laborer CLIA: [id number] Sodium 141 135-145 mmol/L Potassium 4.5 3.5-5.3 [...] Interpretation: Performing Lab: Notes/Report: Test performed by [facility] [address] [place] [address] , [address], [place] [address] Baldemar De Santiago MD, Home Performance Laborer CLIA: [id number] Thyroxine Free (free T4) 1.18 0.86-1.76 ng/dL P-Lipid Panel Reviewed date:03/19/2024 08:49:36 AM Interpretation: Performing Lab: Notes/Report: Test performed by [facility] [address] [facility] [address] [place] [address] Baldemar De Santiago MD, Home Performance Laborer CLIA: [id number] Cholesterol 217 <200 mg/dL Triglycerides 95 <150 [...] Results: 78 Units: mg/dL % Change: - Test Date: 03/18/2024 LDL Results: 137 Units: mg/dL % Change: +75% P-TSH Reviewed date:03/19/2024 08:49:36 AM Interpretation: Performing Lab: Notes/Report: Test performed by [facility] [address] [place] [address] , [place] [address] Baldemar De Santiago MD, Home Performance Laborer CLIA: [id number] TSH 8.02 0.43-5.25 mU/L Urinalysis - Inhouse Reviewed date:12/02/2024 04:50:44 PM Interpretation: Performing Lab: Notes/Report: Color/Clarity yellow/ clear Leuk neg Nitrite neg Urobili 3.2 Protein neg pH 5.5 Blood 2+ Sp. Gr. 1.025 Ketone neg Bili neg Gluc neg P-Culture, Urine Reviewed date:12/08/2024 11:54:52 AM Interpretation:No Growth Performing Lab: Notes/Report: CLIA: [id number] Baldemar De Santiago MD, Home Performance Laborer [address] [place] [address] [place] [address] Test performed by [facility] Specimen Source Urine - Void Culture, Urine See Below Final Report : No Significant Growth TEN-Vaginal Infection panel Reviewed date:12/08/2024 09:42:56 AM Interpretation:Abnormal Performing Lab: Notes/Report: Abnormal CT Scan : Chest, low dose Reviewed date:12/28/2024 09:53:54 AM Interpretation:recommends mammogram, right lower lobe nodule, nothing acute, repeat 1 year Performing Lab: Notes/Report: recommends mammogram, right lower lobe nodule, nothing acute, repeat 1 year Ultrasound : Breast, left Reviewed date:02/02/2025 02:26:04 PM Interpretation:US Guided Biopsy Recommended Performing Lab: Notes/Report: US Guided Biopsy Recommended Mammogram : Diagnostic Left Breast Reviewed date:02/02/2025 02:26:04 PM Interpretation:Stable 1.2 mm mass Performing Lab: Notes/Report: Stable 1.2 mm mass CBC Venipuncture (in house) Reviewed date:09/24/2024 11:59:23 [...] Newton 11.7, eGFR 55 Performing Lab: Notes/Report: CLIA: [id number] Baldemar De Santiago MD, Home Performance Laborer [address] [place] [address] , [address], [place] [address] Test performed by [facility] Sodium 141 135-145 mmol/L Potassium 5.0 3.5-5.3 [...] 11:59:23 AM Interpretation:trigs 168 Performing Lab: Notes/Report: CLIA: [id number] Baldemar De Santiaog MD, Home Performance Laborer [address] [place] [address] , [address], [place] [address] Test performed by [facility] Cholesterol 148 <200 mg/dL Triglycerides 168 <150 [...] Results: 78 Units: mg/dL % Change: - Test Date: 03/18/2024 LDL Results: 137 Units: mg/dL % Change: +75% Test Date: 09/13/2024 LDL Results: 61 Units: mg/dL % Change: -55% P-TSH Reviewed date:09/24/2024 11:59:23 AM Interpretation:65.00 Performing Lab: Notes/Report: Test performed by [facility], [facility] [address] [facility] , [address], [place] [address] Baldemar De Santiago MD, Home Performance Laborer CLIA: [id number] TSH 65.00 0.43-5.25 mU/L Medications Medication SIG (Take, Route, Frequency, Duration) Notes Start Date End Date Status Ciprofloxacin HCl 500 MG 1 tablet Orally every 12 hrs; Duration: 7 days 12/08/2024 Not-Taking Levothyroxine Sodium 137 MCG 1 tablet in the morning on an empty stomach Orally Once a day; Duration: 30 days 02/04/2025 Active busPIRone HCl 15 MG 1 tablet Orally Twic e a day Active Linezolid 600 MG 1 tablet Orally ever y 12 hrs; Duration: 10 days 11/10/2024 Not-Taking Triamcinolone Acetonide 0.1 % 1 application Externally three times a day, prn 10/28/2024 Active amLODIPine Besylate-Valsartan 5-160 MG 1 tab(s) orally once a day; Duration: 90 days Active Levalbuterol Tartrate 45 MCG/ACT 2 puff as needed Inhalation qid prn 10/29/2023 Active Mupirocin 2 % 1 leobardo applied topica lly in the nose daily 12/20/2021 Active Albuterol Sulfate HFA 108 (90 Base) MCG/ACT 1-2 PUFFS Inhalation 4 times a day Active Omeprazole 40 MG 1 capsule 30 minutes before morning meal Orally Once a day Active Potassium Chloride ER 10 MEQ 1 tablet with food Orally Twice a day; Duration: 90 days Active Atorvastatin Calcium 10 MG 1 tablet Orally Once a day; Duration: 90 days Active buPROPion HCl ER (XL) 300 MG TAKE 1 TABLET BY MOUTH DAILY; Duration: 90 Active Triamterene-HCTZ 37.5-25 MG TAKE 1 TABLET BY MOUTH EVERY DAY; Duration: 90 Not-Taki ng Immunizations Vaccine Route Administration Date Status Comme nts xFluzone (6mos and older)-trivalent IM Intramuscular 04/27/2014 Administered Tetanus Tdap-Adacel (over 7yrs) IM Intramuscular 10/28/2024 Administered Prevnar (PCV20) Unknown 04/16/2022 Administered ppd ID Intradermal 12/22/2019 Administered PNEUMOVAX 23 VACCINE IM Intramuscular 04/27/2014 Administe red Hepatitis B (20 and more) Unknown 08/27/1999 Administer ed Hepatitis B (20 and more) Unknown 10/01/1999 Administer ed Hepatitis B (20 and more) Unknown 03/06/2000 Administer ed Fluzone Quad (6months&older) IM Intramuscular 02/16/2018 Administered Fluzone Quad (6months&older) IM Intramuscular 05/10/2019 Administered Fluzone PF Quad (6-35 months) Unknown 04/16/2022 Administered COVID 19 Pfizer Unknown 11/29/2020 Administered COVID 19 Pfizer Unknown 12/20/2020 Administered Problems Problem Type SNOMED Code ICD Code Onset Dates Problem Status W/U Status Risk Notes Problem Hypothyroidism (25024870) Hypothyroidism, unspecified (E03.9) Active confirmed Problem Gastroesophageal reflux disease (653304234) GERD (gastroesophageal reflux disease) (K21.9) Active confirmed Problem Essential hypertension (19952421) Essential (primary) hypertension (I10) Active confirmed Problem Sinusitis (26395333) Sinusitis (J32.9) Active confirmed Problem Vitamin D deficiency (33602606) Vitamin D deficiency (E55.9) Active confirmed Problem Essential hypertension (54702681) Essential hypertension (I10) Active confirmed Problem Anxiety (58055486) Anxiety (F41.9) Active confi rmed Problem Environmental allergy (537940626) Environmental allergies (Z91.048) Active confirmed Problem Mixed anxiety and depressive disorder (387731397) Depression with anxiety (F41.8) Active confirmed Problem Personal history of primary malignant neoplasm of bronchus (132513784) History of lung cancer (Z85.118) Active confirmed Problem Menopause (024561434) Hot flashes (N95.1) Active confirmed Problem Environmental allergy (428543086) Environmental allergies (Z91.09) Active confirmed Problem Primary malignant neoplasm (419103073) Malignant (primary) neoplasm, unspecified (C80.1) Active confirmed Problem Mixed hyperlipidemia (897195761) Mixed hyperlipidemia (E78.2) Active confirmed Problem Hypomagnesemia (430541737) Hypomagnesemia (E83.42) Active confirmed Problem Polyneuropathy (86453495) Polyneuropathy in diseases classified elsewhere (G63) Active confirmed Problem Acquired hypothyroidism (269439920) Acquired hypothyroidism (E03.9) Active confirmed Problem Renal insufficiency (704321998) Renal insufficiency (N28.9) Active confirmed Problem Osteoporosis (03440163) Osteoporosis (M81.0) Active confirmed Problem Anemia (308651777) Anemia, unspecified type (D64.9) Active confirmed Problem Tobacco use (689979680) Tobacco use disorder (F17.200) Active confirmed Problem History of malignant neoplasm of pharynx (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 Problem Fibrocystic breast changes (77082825) Fibrocystic breast disease (FCBD), unspecified laterality (N60.19) Active confirmed Problem Personal history of primary malignant neoplasm of bronchus (130467694) H/O malignant neoplasm of lung (Z85.118) Active confirmed Problem History of lung lobectomy (situation) (73491267779971200) 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) Active confirmed Problem Tomography - chest abnormal (879960554) Abnormal CT scan, chest (R93.89) Active confirmed Vital Signs Heart Rate 88 /min 01/28/2025 Blood pressure diastolic 82 mm Hg 01/28/2025 Height 60 in 01/28/2025 Blood pressure systolic 136 mm Hg 01/28/2025 Weight 113.2 lbs 01/28/2025 BMI 22.11 kg/m2 01/28/2025 Encounters Encounter Location Date Provider Diagnosis [facility] [address] [facility] [address], [place] [id number] 03/18/2024 Sophia Kent Acquired hypothyroid ism E03.9 ; Depression with anxiety F41.8 ; Essential hypertension I10 ; Hypokalemia E87.6 ; Renal insufficiency N28.9 ; History of lung cancer Z85.118 ; Anemia, unspecified type D64.9 and Mixed hyperlipidemia E78.2 [facility] [address] [facility] [address] [place], [place] [id number] 05/17/2024 Mary Le [facility] [address] [facility] [address] [place], [place] [id number] 09/13/2024 Mary Le Acquired hypothyroid ism E03.9 ; Essential hypertension I10 ; Mixed hyperlipidemia E78.2 ; H/O malignant neoplasm of pharynx Z85.819 ; History of lung cancer Z85.118 ; Immunization due Z23 ; Anemia, unspecified type D64.9 ; Anxiety F41.9 and BMI 21.0-21.9, adult Z68.21 [facility] [address] [place], [place] [id number] 10/25/2024 Mary Le Acquired hypothyroid ism E03.9 [facility] [address], [place] [id number] 10/28/2024 Sophia Kent Rash R21 ; Acquired hypothyroidism E03.9 ; Colon cancer screening Z12.11 ; Acute vaginitis N76.0 ; Sinus congestion R09.81 ; Encounter for immunization Z23 and BMI 21.0-21.9, adult Z68.21 [facility] [address] [place], [place] [id number] 11/05/2024 Sophia Kent [facility] [address] [place], [place] [id number] 11/18/2024 Sophia Kent Acute URI J06.9 ; Le g swelling M79.89 and BMI 22.0-22.9, adult Z68.22 [facility] [address] [place], [place] [id number] 12/02/2024 Sophia Kent Essential hypertensi on I10 ; Acute vaginitis N76.0 and Dysuria R30.0 [facility] [address] [place], [place] [id number] 01/28/2025 Sophia Kent Acquired hypothyroid ism E03.9 ; Renal insufficiency N28.9 ; Elevated liver enzymes R74.8 ; Vitamin D deficiency E55.9 ; Vitamin B12 deficiency E53.8 ; Hypomagnesemia E83.42 and BMI 22.0-22.9, adult Z68.22 [facility] [address] [place] [id number] 03/19/2024 Sophia Kent [facility] [address] [place], [place] [id number] 05/18/2024 J Leonidas Le Depression with anxi ety F41.8 [facility] [address] [place], [place] [id number] 07/22/2024 J Leonidas Rey Depression with anxi ety F41.8 [facility] [address] [place], [place] [id number] 07/22/2024 J Leonidas Rey [facility] [address] [place] [id number] 09/24/2024 J Leonidas Rey [facility] [address] [place] [id number] 10/06/2024 J Leonidas Rey [facility] [address] [place] [id number] 11/03/2024 J Leonidas Le [facility] [address] [place] [id number] 11/09/2024 Sophia Kent [facility] [address] [place] [id number] 11/10/2024 J Leonidas Le [facility] [address] [place] [id number] 12/01/2024 Sophia Kent [facility] [address] [place], [place] [id number] 12/07/2024 J Leonidas Le Positive colorectal cancer screening using Cologuard test R19.5 ; Screening for colon cancer Z12.11 ; Screening for breast cancer Z12.39 ; Screening for lung cancer Z12.2 and History of tobacco use Z87.891 [facility] [address] [place], [place] [id number] 12/08/2024 Gely Santana [facility] [address] [place] [id number] 12/17/2024 Sophia Kent [facility] [address] [place] [id number] 12/28/[address] scan, ch est R93.89 [facility] [address] [facility] [address] [place] [id number] 02/01/2025 Sophia Kent Acquired hypothyroid ism E03.9 Assessments Encounter Date Diagnosis (ICD Code) Assessment Notes Treatment Notes Treatment Clinical Notes Section Notes 03/18/2024 Depression with anxiety (ICD-10 - F41.8) Has been off since Mar 08 and will need to remain off until f/u. She is going to go directly down [...] (ICD-10 - I10) Pt needs refills on amlodipine/vals saurabh 12/02/2024 Acute vaginitis (ICD-10 - N76.0) 12/07/2024 Screening for colon cancer (ICD-10 - Z12.11) 12/07/2024 Positive colorectal cancer screening using Cologuard test (ICD-10 - R19.5) 12/28/[address] scan, chest (ICD-10 - R93.89) 01/28/2025 Acquired hypothyroidism (ICD-10 - E03.9) 01/28/2025 Renal insufficiency (ICD-10 - N28.9) 02/01/2025 Acquired hypothyroidism (ICD-10 - E03.9) 01/28/2025 Elevated liver enzymes (ICD-10 - R74.8) 12/07/2024 Screening for breast cancer (ICD-10 - [...] once she checks her medications at home. 03/18/2024 Hypokalemia (ICD-10 - E87.6) 09/13/2024 H/O malignant neoplasm of pharynx (ICD-10 - Z85.819) 10/28/2024 Acute vaginitis (ICD-10 - N76.0) v 01/28/2025 Vitamin D deficiency (ICD-10 - E55.9) 01/28/2025 Vitamin B12 deficiency (ICD-10 - E53.8) 09/13/2024 History of lung cancer (ICD-10 - Z85.118) 10/28/2024 Sinus congestion (ICD-10 - R09.81) v 12/07/2024 Screening for lung cancer (ICD-10 - Z12.2) 03/18/2024 Renal insufficiency (ICD-10 - N28.9) 09/13/2024 Immunization due (ICD-10 - Z23) 03/18/2024 History of lung cancer (ICD-10 - Z85.118) 12/07/2024 History of tobacco use (ICD-10 - Z87.891) 10/28/2024 Encounter for immunization (ICD-10 - Z23) v 01/28/2025 Hypomagnesemia (ICD-10 - E83.42) 01/28/2025 BMI 22.0-22.9, adult (ICD-10 - Z68.22) 10/28/2024 BMI 21.0-21.9, adult (ICD-10 - Z68.21) v 03/18/2024 Anemia, unspecified type (ICD-10 - D64.9) 09/13/2024 Anemia, unspecified type (ICD-10 - D64.9) 03/18/2024 Mixed hyperlipidemia (ICD-10 - E78.2) 09/13/2024 Anxiety (ICD-10 - F41.9) 09/13/2024 BMI 21.0-21.9, adult (ICD-10 - Z68.21) Plan Of Treatment Pending Test Test Name Order Date colonoscopy 07/17/2023 colonoscopy 12/07/2024 Mammogram 12/07/2024 Ultrasound Guided Biopsy: left breast Cologuard 10/15/2023 Insurance Providers Payer Name Payer Address Payer Phone Subscriber Number Group Number Insured Name Patient Relationship to Insured Coverage Start Date Coverage End Date [employer] [address] [place] [address] [id number] [employer] Montiel Self - patient is the insured Medical (General) History Medical History History ICD Code Hypertension Hypothyroidism Depression Anxiety Lung Cancer Stage I - chemo treatments - Dr. Saloni Mckeon - [facility] dx. May 01, [address] Jenkins in November 2022 Surgical History Surgery Date(Month/Year) Gallstones 1970 Arm Surgery 1980 Hysterectomy 2006 lymph node biopsy left neck, metastatic squamous cell CA 03/2012 panendoscopy 03/2012 left neck dissection, nodes negative Nasal 02/03/2014 Partial Mid RT Lung - cancer - Chemo Fausto atments Port Placement 06/30/2017 Hospitalization History Reason Date(Month/Year) [facility] - Lung Cancer Removal 06/02- pneumonia 1994
== END 2025-02-18 23:59 | disposition home or self-care (01) ==
LOC: RAD 09:34
PROVIDERS: PCP Family Medicine; Visit Provider Physician Assistant
DX: N63.25 Unspecified lump in the left breast, overlapping quadrants (principal)
CPT/HCPCS: 19083; 77065; A4648; C2618